=== PATIENT | female | born 1950 | race Caucasian/White ===

== ENCOUNTER 2016-05-30 12:49 | Emergency (ER) | payer MEDICARE, OTHER ==
[2016-05-30 13:08] VITALS: BP 127/69
--- NOTE | 2016-05-30 15:12 | UC ---
Respiratory Complaint HPI - HPI Summary HPI Summary: Cough x several days. Has been taking cough syrup with some relief. Also has a wound on her left hand that is 7 days old, that she has been using A& D and keeping it covered. Is concerned because it is still draining and starting to get red. - History of Current Complaint Chief Complaint: UCRespiratory Stated Complaint: DRY COUGH,LEFT HAND PAIN Time Seen by Provider: 05/30/16 15:02 Hx Obtained From: Patient Onset/Duration: Gradual Onset, Lasting Days, Still Present Timing: Constant Severity Initially: Moderate Severity Currently: Moderate Pain Intensity: 5 Pain Scale Used: 0-10 Numeric Character: Cough: Nonproductive Aggravating Factors: Nothing Alleviating Factors: Nothing Associated Signs And Symptoms: Positive: URI, Nasal Congestion. Negative: Fever , Chills - Risk Factors Pulmonary Embolism Risk Factors: Negative Cardiac Risk Factors: Negative Pseudomonas Risk Factors: Negative Tuberculosis Risk Factors: Negative - Allergies/Home Medications Allergies/Adverse Reactions: Allergies Allergy/AdvReac Type Severity Reaction Status Date / Time Bacitracin [From Neosporin] Allergy Rash Verified 05/30/16 13:05 Neomycin [From Neosporin] Allergy Rash Verified 05/30/16 13:05 Polymyxin B [From Neosporin] Allergy Rash Verified 05/30/16 13:05 Home Medications: Home Medications Aspirin EC Low Dose* [Ecotrin EC Low Dose*] 81 mg PO DAILY 05/30/16 [History Confirmed 05/30/16] FLUoxetine CAP* [PROzac CAP*] 20 mg PO DAILY 05/30/16 [History Confirmed ] LORazepam TAB(*) [Ativan TAB(*)] 0.25 mg PO BID 05/30/16 [History Confirmed ] Lisinopril TAB* [Prinivil TAB 10 MG*] 2.5 mg PO DAILY 05/30/16 [History Confirmed 05/30/16] Risperidone [Risperdal M-Tab-] 0.25 mg PO BID 05/30/16 [History Confirmed ] Simvastatin [Zocor 40 MG (NF)] 40 mg PO QPM 05/30/16 [History Confirmed 05/30/16 ] PMH/Surg Hx/FS Hx/Imm Hx Endocrine History Of: Reports: Dyslipidemia Cardiovascular History Of: Reports: Hypertension Psychological History Of: Reports: Depression Cancer History Of: Denies: Breast Cancer - Surgical History Surgical History: None - Family History Known Family History: Positive: Hypertension - Social History Occupation: Retired Alcohol Use: Occasionally Substance Use Type: None Smoking Status (MU): Never Smoked Tobacco Review of Systems Constitutional: Negative Skin: Other - lesion left hand Eyes: Negative ENT: Negative Respiratory: Cough Cardiovascular: Negative Gastrointestinal: Negative Genitourinary: Negative Motor: Negative Neurovascular: Negative Musculoskeletal: Negative Neurological: Negative Psychological: Negative All Other Systems Reviewed And Are Negative: Yes Physical Exam Triage Information Reviewed: Yes Appearance: Well-Appearing, Well-Nourished, Pain Distress Vital Signs: Initial Vital Signs Temp 98.3 F 05/30/16 13:02 Pulse 81 05/30/16 13:02 Resp 16 05/30/16 13:02 BP 127/69 05/30/16 13:02 Pulse Ox 100 05/30/16 13:02 Vital Signs Reviewed: Yes Eyes: Positive: Conjunctiva Clear ENT: Positive: Normal ENT inspection. Negative: Muffled/hoarse voice Neck: Positive: Supple Respiratory: Positive: Lungs clear, Normal breath sounds, No respiratory distress Cardiovascular: Positive: RRR, No Murmur, Pulses Normal, Brisk Capillary Refill Musculoskeletal: Positive: Strength Intact, ROM Intact Neurological: Positive: Alert, Muscle Tone Normal Psychological Exam: Normal Skin: Positive: Other - 3cm skin tear on dorsum of left hand; drainage cultured ; 2cm surrounding redness, no red streak; full ROM of hand; no bony tenderness UC Diagnostic Evaluation - Laboratory O2 Sat by Pulse Oximetry: 100 Respiratory Course/Dx - Course Course Of Treatment: will give antibiotic that will cover skin and cough. Discussed pt's sensitivity/allergy to antibiotic ointments, will not try anything new such as bactroban. Discussed wound care. Advised pt to use paper tape as some of the redness may be the bandaging she is using. Wound cultured. Pt to follow up with Dr. Tolentino if no improvement. - Differential Dx/Diagnosis Differential Diagnosis/HQI/PQRI: Bronchitis, Lower Resp Infection, Sinusitis, Other - hand wound Provider Diagnoses: left hand wound. acute cough Discharge - Discharge Plan Condition: Stable Disposition: HOME Prescriptions: Azithromycin TAB* [Zithromax TAB (Z-JES) 250 mg #6 tabs] 2 tab PO .TODAY, THEN 1 DAILY #1 jes guaiFENesin/CODIEN 100MG-10MG* [Robitussin AC 100Mg-10Mg*] 5 ml PO Q4H PRN #50 ml MDD 20ml PRN Reason: Cough Patient Education Materials: Abrasion (ED), Acute Cough (ED) Referrals: Yuri Tolentino MD [Primary Care Provider] - Additional Instructions: Dr. Goss recommends that you continue with the A & D ointment on your wound due to your allergies. Keep it covered except when you are in the shower. Use telfa (non-stick) bandages, and try paper tape that comes in a dispenser. If you see a red streak, if you have increased drainage, fever or any worsening symptoms, return to urgent care or see Dr. Tolentino.
--- NOTE | 2016-05-31 16:49 | UC ---
Progress - Progress Note Progress Note: The patient was called on the phone and told of the positive MRSA report. She was told of her treatment options. She did not want to wait on the sensitivity. She wanted to go with doxycycline as her treatment for the wound infection since she is allergic to sulfa medications. She was told that if she started the doxycycline, she would not need to take the Zithromax also. She stated that she will be in to get a copy of the microbiology report to take to her would care provider with whom she has an appointment tomorrow.
== END 2016-05-30 15:47 | disposition home or self-care (01) ==
LOC: UCCORT 12:49
DX: R05 Cough (principal); S61.412A Laceration without foreign body of left hand, initial encounter; B95.62 Methicillin resistant Staphylococcus aureus infection as the cause of diseases classified elsewhere; X58.XXXA Exposure to other specified factors, initial encounter; Y93.9 Activity, unspecified; Y92.9 Unspecified place or not applicable
CPT/HCPCS: 87070; 87077; 87186; 87205; 87640; 87641; 99212; G0463

== ENCOUNTER 2017-06-19 09:10 | Emergency (ER) | payer MEDICARE, OTHER ==
[2017-06-19 10:07] VITALS: BP 134/51
--- NOTE | 2017-06-19 10:09 | UC ---
Skin Complaint HPI - HPI Summary HPI Summary: 67 yo female had ring cut of LRF 4-5 days ago because it was too tight to remove and her finger was swelling there was a break in her skin now red as swollen were her ring was no f/c unsure of last TD but will check with here PCP - History of Current Complaint Chief Complaint: UCSkin Time Seen by Provider: 06/19/17 09:40 Stated Complaint: LEFT RING FINGER SKIN COMPLAINT Hx Obtained From: Patient Onset/Duration: Gradual Onset, Lasting Days Timing: Constant Onset Severity: Mild Current Severity: Mild Pain Intensity: 0 Pain Scale Used: 0-10 Numeric Location: Discrete Character: Redness, Raised Aggravating Factor(s): Touch Associated Signs & Symptoms: Positive: Tenderness. Negative: Fever, Chills Related History: Trauma - Allergy/Home Medications Allergies/Adverse Reactions: Allergies Allergy/AdvReac Type Severity Reaction Status Date / Time bacitracin Allergy Rash Verified 06/19/17 09:53 neomycin Allergy Rash Verified 06/19/17 09:53 [From Neosporin ([id number])] polymyxin B Allergy Rash Verified 06/19/17 09:53 [From Neosporin ([id number])] sulfamethoxazole Allergy Rash Verified 06/19/17 09:53 [From Bactrim] trimethoprim [From Bactrim] Allergy Rash Verified 06/19/17 09:53 Home Medications: Home Medications Cholecalciferol TAB* [Vitamin D TAB*] 1,000 unit PO DAILY 06/19/17 [History Confirmed 06/19/17] Review of Systems Constitutional: Negative Skin: Negative Eyes: Negative ENT: Negative Respiratory: Negative Cardiovascular: Negative Gastrointestinal: Negative Genitourinary: Negative Motor: Negative Neurovascular: Negative Musculoskeletal: Negative Neurological: Negative Psychological: Negative Is Patient Immunocompromised?: No All Other Systems Reviewed And Are Negative: Yes PMH/Surg Hx/FS Hx/Imm Hx Previously Healthy: Yes Endocrine History: Dyslipidemia Cardiovascular History: Hypertension - Surgical History Surgical History: None - Family History Known Family History: Positive: Hypertension, Diabetes - Social History Alcohol Use: Rare Substance Use Type: None Smoking Status (MU): Never Smoked Tobacco Physical Exam Triage Information Reviewed: Yes Appearance: Well-Appearing, No Pain Distress, Well-Nourished Vital Signs: Initial Vital Signs Temp 98.7 F 06/19/17 10:01 Pulse 79 06/19/17 10:01 Resp 18 06/19/17 10:01 BP 134/51 06/19/17 10:01 Pulse Ox 99 06/19/17 10:01 Vital Signs Reviewed: Yes Eyes: Positive: Conjunctiva Clear ENT: Positive: Hearing grossly normal. Negative: Nasal congestion, Nasal drainage, Muffled voice Neck: Positive: Supple, Nontender, No Lymphadenopathy Respiratory: Positive: Lungs clear, Normal breath sounds, No respiratory distress, No accessory muscle use Cardiovascular: Positive: RRR, No Murmur Musculoskeletal: Positive: ROM Intact, Other: - see image Neurological: Positive: Alert Psychological Exam: Normal Skin Exam: Other - see image Course/Dx - Diagnoses Provider Diagnoses: cellulitis left ring finger Discharge - Discharge Plan Condition: Stable Disposition: HOME Prescriptions: Cephalexin CAP* [Keflex CAP*] 500 mg PO QID #28 cap Patient Education Materials: Cellulitis (ED) Referrals: Yuri Tolentino MD [Primary Care Provider] - 5 Days (if not markedly improved ) Additional Instructions: recheck for new or worsening symptoms Images Hands: 1 - red and swollen
== END 2017-06-19 10:14 | disposition home or self-care (01) ==
LOC: UCCORT 09:10
DX: L03.012 Cellulitis of left finger (principal); Z88.1 Allergy status to other antibiotic agents; Z88.8 Allergy status to other drugs, medicaments and biological substances; I10 Essential (primary) hypertension
CPT/HCPCS: 99212; G0463

== ENCOUNTER 2019-01-28 10:39 | Emergency (ER) | payer MEDICARE, OTHER ==
--- OUTSIDE RECORDS SUMMARY | 2019-01-28 10:50 | XMS REPORT | Continuity of Care Document ---
:1950 External Reference #:[id number] Author Name Kristy Tolentino NP Address [address] [address] Care Team Providers Name Role Phone Kyung Jefferskristian - Gastroenterology Care Team Information Excellence Manager Problems Active Problems Provider Date Mixed hyperlipidemia Erasmo Araya MD Onset: 12/25/2003 Benign essential hypertension Erasmo Araya MD Onset: 12/25/2003 Psoriasis Kim Horan MD Onset: 03/25/2004 Cellulitis and abscess of foot excluding toe Kim Horan MD Onset: 2006 Toxic effect of venom Kim Horan MD Onset: 11/21/2006 Acute upper respiratory infection Kim Horan MD Onset: 06/21/2011 Acute bronchitis Kim Horan MD Onset: 02/29/2012 Impaired fasting glycaemia Kim Horan MD Onset: 02/29/2012 Essential hypertension Yuri Tolentino MD Onset: 01/13/2015 Social History Type Date Description Comments Sex Unknown Tobacco Use Start: Unknown Never Smoked Cigarettes ETOH Use Rarely consumes alcohol Recreational Drug Use Denies Drug Use Tobacco Use Start: Unknown Patient has never smoked Smoking Status Reviewed: 08/25/17 Patient has never smoked Allergies, Adverse Reactions, Alerts Active Allergies Reaction Severity Comments Date Sulfa Rash 08/22/2003 Neosporin Rash 08/22/2003 Bactrim rash 05/26/2012 Medications Active Medications SIG Qnty Indications Ordering Date Provider Benzonatate 1 by mouth three 30caps Randa 01/01/2019 100mg times a day CESAR Wagner Capsules Guaifenesin-Codeine 10ml every 4 hours 118ml Randa 01/01/2019 as needed CESAR Wagner 100-10mg/5ML Syrup Ibuprofen take one tablet by 120tabs M25.561 [facility], 12/21/2018 600mg mouth every 8 CESAR Wagner Tablets hours as needed Blood Pressure use to check bp as 1units [facility], 08/21/2018 Monitor Automatic directed CESAR Wagner With Large Cuff Kit Vitamin D 1 by mouth every [facility], 02/07/2018 (Ergocalciferol) day CESAR Wagner 2000Unit Capsules Atorvastatin Calcium 1 by mouth every 90tabs E78.2 [facility], 06/21/2017 day CESAR Wagner 40mg Tablets Fluoxetine HCL 1 tabs by mouth 90caps [facility], 09/24/2016 (PMDD) every morning CESAR Wagner 10mg Capsules Lisinopril 1 by mouth every 5tabs [facility], 12/11/2015 2.5mg day Kristy, FIREARMS INSPECTOR Tablets Onetouch Ultra Blue test twice daily 100units R73.01 Yuri Tolentino, 02/28 Strips Onetouch Delica ck glu qd AT 100units R73.01 Kim Horan, 02/29/2012 Lancets Alternating Times Misc Aspirin 1 by mouth every 90units Yuri Tolentino, 06/03/2010 81mg Chewtabs day History Medications Shingrix administer now and 2units Kristy Tolentino, 08/03/2018 - 50mcg/0.5ML second injection in FIREARMS INSPECTOR 08/03/2018 Suspension Rec 2-4 months Immunizations CPT Code Status Date Vaccine Lot # [id number] Given 03/28/2018 Pneumococcal 23 Immunization Adult Or [id number] Immunosuppressed Patient 49611 Given 02/25/2018 Influenza Vac, Quadrivalent, Split, 0.5mL Dosage, Im Use 89836 Given 08/25/2017 Tdap (Adacel) Ages 7 And Above Only [id number] 48927 Given 01/13/2016 Prevnar 13 Pneumococal Conjugate Vaccine [id number] U-Pneum Given 02/20/2015 Pneumococcal (Non Billable) Unspecified 16196 Given 03/04/2014 Zoster (Zostavax) [id number] 27706 Given 06/03/2010 Pneumococcal 23 Immunization Adult Or [id number] Immunosuppressed Patient 75284 Given 02/09/2010 Afluria Or Fluvirin Flu Vac Intramuscular [id number] 15349 Given 09/22/2005 Tdap (Adacel) Ages 7 And Above Only [id number] Refused 01/01/2019 Afluria Or Fluvirin Flu Vac Intramuscular 31753 Refused 02/03/2018 Fluzone Highdose Age 65 And Over Preservative & Antibiotic Free 75124 Refused 12/01/2016 Afluria Or Fluvirin Flu Vac Intramuscular Vital Signs Date Vital Result Comment 01/01/2019 3:21pm Body Temperature 98.0 F Weight 240.00 lb Heart Rate 81 /min BP Systolic 122 mmHg BP Diastolic 70 mmHg Respiratory Rate 16 /min Height 65 inches 5'5" O2 % BldC Oximetry 96 % BMI (Body Mass Index) 39.9 kg/m2 12/21/2018 3:30pm Body Temperature 97.7 F Weight 236.00 lb Heart Rate 85 /min BP Systolic 128 mmHg BP Diastolic 66 mmHg Respiratory Rate 17 /min Height 65 inches 5'5" O2 % BldC Oximetry 97 % BMI (Body Mass Index) 39.3 kg/m2 Results Description No Information Available Procedures Date Code Description Status 12/15/2018 13839 Destruction Benign Lesions Other Than Skin Tags Up To Completed 14 Lesions 08/21/2018 72921 Destruction Benign Lesions Other Than Skin Tags Up To Completed 14 Lesions 03/14/2018 [id number] Mammogram Completed 04/20/2017 [id number] Bone Mineral Density Test Completed 03/09/2017 [id number] Mammogram Completed 02/25/2016 [id number] Mammogram Completed 02/03/2015 [id number] Mammogram Completed 01/11/2014 [id number] Mammogram Completed 07/04/2013 [id number] Mammogram Completed 01/04/2013 [id number] Mammogram Completed 01/12/2012 [id number] Bone Mineral Density Test Completed 12/30/2011 [id number] Mammogram Completed Medical Devices Description No Information Available Encounters Type Date Location Provider Dx Diagnosis Office Visit 12/21/2018 Kristy Fallon NP E66.9 Obesity, unspecified 3:30p M25.561 Pain in RIGHT knee Z68.39 Body mass index (BMI) 39.0-39.9, adult Office Visit 08/03/2018 2:00p Kristy Fallon NP E66.9 Obesity, unspecified R73.01 Impaired fasting glucose F33.0 Major depressive disorder, recurrent, mild Z68.38 Body mass index (BMI) 38.0-38.9, adult Assessments Date Code Description Provider 01/01/2019 E66.9 Obesity, unspecified Kristy Tolentino, FIREARMS INSPECTOR 01/01/2019 J00 Acute nasopharyngitis [common cold] Georgesmadelyn Kristy, FIREARMS INSPECTOR 01/01/2019 Z68.39 Body mass index (BMI) 39.0-39.9, adult Kristy Tolentino, FIREARMS INSPECTOR 12/21/2018 E66.9 Obesity, unspecified Kristy Tolentino, FIREARMS INSPECTOR 12/21/2018 M25.561 Pain in RIGHT knee Kristy Tolentino, FIREARMS INSPECTOR 12/21/2018 Z68.39 Body mass index (BMI) 39.0-39.9, adult Kristy Tolentino, FIREARMS INSPECTOR 12/15/2018 E66.9 Obesity, unspecified Yuri Tolentino MD 12/15/2018 B07.0 Plantar Yuri Ornelas MD 12/15/2018 Z68.39 Body mass index (BMI) 39.0-39.9, adult Yuri Tolentino MD 08/21/2018 E66.9 Obesity, unspecified Kristy Tolentino, FIREARMS INSPECTOR 08/21/2018 B07.0 Plantar Kristy Ornelas, FIREARMS INSPECTOR 08/21/2018 Z68.38 Body mass index (BMI) 38.0-38.9, adult Kristy Tolentino, FIREARMS INSPECTOR 08/03/2018 E66.9 Obesity, unspecified Kristy Tolentino, FIREARMS INSPECTOR 08/03/2018 R73.01 Impaired fasting glucose Kristy Tolentino, CESAR 08/03/2018 F33.0 Major depressive disorder, recurrent, mild Kristy Tolentino , FIREARMS INSPECTOR 08/03/2018 Z68.38 Body mass index (BMI) 38.0-38.9, adult Kristy Tolentino NP Plan of Treatment Future Appointment(s):01/19/2019 10:30 am - Yuri Tolentino MD at [place]2018 - Kristy Tolentino NPE66.9 Obesity, [id number] Acute nasopharyngitis [ common cold]Z68.39 Body mass index (BMI) 39.0-39.9, adultAllNew Medication: Benzonatate 100 mg - 1 by mouth three times a dayGuaifenesin-Codeine 100-10 mg/ 5ML - 10ml every 4 hours as needed Functional Status Description No Information Available Mental Status Description No Information Available Referrals Description No Information Available
--- OUTSIDE RECORDS SUMMARY | 2019-01-28 10:50 | XMS REPORT | Continuity of Care Document ---
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 Problems Active Problems Provider Date Mixed hyperlipidemia [...] Medications SIG Qnty Indications Ordering Date Provider Blood Pressure use to check bp as 1units Randa, 08/21/2018 Monitor Automatic directed CESAR Wagner With Large Cuff Kit Vitamin D 1 by mouth every Randa, 02/07/2018 (Ergocalciferol) day Kristy PRINCIPAL DEVELOPER 2000Unit Capsules Atorvastatin Calcium 1 by mouth every 90tabs E78.2 Randa, 06/21/2017 day KristyCESAR 40mg Tablets Fluoxetine HCL 1 tabs by mouth 90caps Randa, 09/24/2016 (PMDD) every morning KristyCESAR 10mg Capsules Lisinopril 1 by mouth every 5tabs Randa, 12/11/2015 2.5mg day CESAR Wagner Tablets Onetouch Ultra Blue test twice daily 100units R73.01 Yuri Tolentino, 02/28 Strips Onetouch Delica ck glu qd AT 100units R73.01 Kim Horan, 02/29/2012 Lancets Alternating Times Misc Aspirin 1 by mouth every 90units Yuri Tolentino, 06/03/2010 81mg Chewtabs day History Medications Shingrix administer now and 2units Kristy Tolentino, 08/03/2018 - 50mcg/0.5ML second injection in PRINCIPAL DEVELOPER 08/03/2018 Suspension Rec 2-4 months Immunizations CPT Code Status Date Vaccine Lot # [id number] Given 03/28/2018 Pneumococcal 23 Immunization Adult Or [id number] Immunosuppressed Patient 44267 Given 02/25/2018 Influenza Vac, Quadrivalent, Split, 0.5mL Dosage, Im Use 05019 Given 08/25/2017 Tdap (Adacel) Ages 7 And Above Only [id number] 79568 Given 01/13/2016 Prevnar 13 Pneumococal Conjugate Vaccine [id number] U-Pneum Given 02/20/2015 Pneumococcal (Non Billable) Unspecified 52441 Given 03/04/2014 Zoster (Zostavax) [id number] 61733 Given 06/03/2010 Pneumococcal 23 Immunization Adult Or [id number] Immunosuppressed Patient 02948 Given 02/09/2010 Afluria Or Fluvirin Flu Vac Intramuscular [id number] 48508 Given 09/22/2005 Tdap (Adacel) Ages 7 And Above Only [id number] 62033 Refused 02/03/2018 Fluzone Highdose Age 65 And Over Preservative & Antibiotic Free 57951 Refused 12/01/2016 Afluria Or Fluvirin Flu Vac Intramuscular Vital Signs Date Vital Result Comment 12/15/2018 2:43pm Body Temperature 98.2 F Weight 237.00 lb Heart Rate 75 /min BP Systolic 130 mmHg BP Diastolic 72 mmHg Respiratory Rate 17 /min Height 65 inches 5'5" O2 % BldC Oximetry 96 % BMI (Body Mass Index) 39.4 kg/m2 08/21/2018 10:43am Body Temperature 96.8 F Weight 231.00 lb Heart Rate 91 /min BP Systolic 150 mmHg BP Diastolic 80 mmHg Respiratory Rate 15 /min Height 65 inches 5'5" O2 % BldC Oximetry 93 % BMI (Body Mass Index) 38.4 kg/m2 Results Description No Information Available Procedures Date Code Description Status 12/15/2018 88203 Destruction Benign Lesions Other Than Skin Tags Up To Completed 14 Lesions 08/21/2018 75977 Destruction Benign Lesions Other Than Skin Tags Up To Completed 14 Lesions 03/14/2018 [id number] Mammogram Completed 04/20/2017 [id number] Bone Mineral Density Test Completed 03/09/2017 [id number] Mammogram Completed 02/25/2016 [id number] Mammogram Completed 02/03/2015 [id number] Mammogram Completed 01/11/2014 [id number] Mammogram Completed 07/04/2013 [id number] Mammogram Completed 01/04/2013 [id number] Mammogram Completed 01/12/2012 [id number] Bone Mineral Density Test Completed 12/30/2011 [id number] Mammogram Completed Medical Devices Description No Information Available Encounters Type Date Location Provider Dx Diagnosis Office Visit 08/03/2018 Kristy Fallon NP E66.9 Obesity, unspecified 2:00p R73.01 Impaired fasting glucose F33.0 Major depressive disorder, recurrent, mild Z68.38 Body mass index (BMI) 38.0-38.9, adult Assessments Date Code Description Provider 12/15/2018 E66.9 Obesity, unspecified Yuri Tolentino MD 12/15/2018 B07.0 Plantar Yuri Ornelas MD 12/15/2018 Z68.39 Body mass index (BMI) 39.0-39.9, adult Yuir Tolentino MD 08/21/2018 E66.9 Obesity, unspecified Kristy Tolentino NP 08/21/2018 B07.0 Plantar Kristy Ornelas NP 08/21/2018 Z68.38 Body mass index (BMI) 38.0-38.9, adult Kristy Tolentino NP 08/03/2018 E66.9 Obesity, unspecified Kristy Tolentino NP 08/03/2018 R73.01 Impaired fasting glucose Kristy Tolentino NP 08/03/2018 F33.0 Major depressive disorder, recurrent, mild Kristy Tolentino , CESAR 08/03/2018 Z68.38 Body mass index (BMI) 38.0-38.9, adult Kristy Tolentino NP Plan of Treatment Future Appointment(s):12/21/2018 3:30 pm - Kristy Tolentino NP at [email or web address] 10:30 am - Yuri Tolentino MD at [place]12/15/2018 - Yuri Tolentino MDE66.9 Obesity, unspecifiedComments:RECOMMEND CONTINUED DIET AND EXERCISE. OFFERED CONSULT WITH OUR HVAC MAINTENANCE TECHNICIAN.B07.0 Plantar clementetFcynthia up:1 WEEK with WILD68.39 Body mass index (BMI) 39.0-39.9, adult Functional Status Description No Information Available Mental Status Description No Information Available Referrals Description No Information Available
--- OUTSIDE RECORDS SUMMARY | 2019-01-28 10:50 | XMS REPORT | Continuity of Care Document ---
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 Problems Active Problems Provider Date Mixed hyperlipidemia [...] Ibuprofen take one tablet by 120tabs M25.561 [facility], 12/21/2018 600mg mouth every 8 CESAR Wagner Tablets hours as needed Blood Pressure use to check bp as 1units [facility], 08/21/2018 Monitor Automatic directed CESAR Wagner With Large Cuff Kit Vitamin D 1 by mouth every [facility], 02/07/2018 (Ergocalciferol) day CESAR Wagner 2000Unit Capsules Atorvastatin Calcium 1 by mouth every 90tabs E78.2 [facility], 06/21/2017 day CESAR Wagner 40mg Tablets Fluoxetine HCL 1 tabs by mouth 90caps [facility], 09/24/2016 (PMDD) every morning CESAR Wagner 10mg Capsules Lisinopril 1 by mouth every 5tabs [facility], 12/11/2015 2.5mg day CESAR Wagner Tablets Onetouch Ultra Blue test twice daily 100units R73.01 Yuri Tolentino, 02/28 Strips Onetouch Delica ck glu qd AT 100units R73.01 Kim Horan, 02/29/2012 Lancets Alternating Times Misnick Aspirin 1 by mouth every 90units Yuri Tolentino, 06/03/2010 81mg Chewtabs day History Medications Shingrix administer now and 2units Kristy Tolentino, 08/03/2018 - 50mcg/0.5ML second injection in [employer] 08/03/2018 Suspension Rec 2-4 months Medications Administered in Office Medication SIG Qnty Indications Ordering Provider Date Inj Triamcinolone (Kenalog) Im Kristy Tolentino NP 01/08/2019 10 MG, Injection Immunizations CPT Code Status Date Vaccine Lot # [id number] Given 03/28/2018 Pneumococcal 23 Immunization Adult Or [id number] Immunosuppressed Patient 07395 Given 02/25/2018 Influenza Vac, Quadrivalent, Split, 0.5mL Dosage, Im Use 18656 Given 08/25/2017 Tdap (Adacel) Ages 7 And Above Only [id number] 88075 Given 01/13/2016 Prevnar 13 Pneumococal Conjugate Vaccine [id number] U-Pneum Given 02/20/2015 Pneumococcal (Non Billable) Unspecified 64923 Given 03/04/2014 Zoster (Zostavax) [id number] 90068 Given 06/03/2010 Pneumococcal 23 Immunization Adult Or [id number] Immunosuppressed Patient 33825 Given 02/09/2010 Afluria Or Fluvirin Flu Vac Intramuscular [id number] 58720 Given 09/22/2005 Tdap (Adacel) Ages 7 And Above Only [id number] Refused 01/01/2019 Afluria Or Fluvirin Flu Vac Intramuscular 93836 Refused 02/03/2018 Fluzone Highdose Age 65 And Over Preservative & Antibiotic Free 21177 Refused 12/01/2016 Afluria Or Fluvirin Flu Vac Intramuscular Vital Signs Date Vital Result Comment 01/08/2019 3:18pm Body Temperature 97.4 F Weight 238.00 lb Heart Rate 78 /min BP Systolic 140 mmHg BP Diastolic 90 mmHg O2 % BldC Oximetry 94 % 01/01/2019 3:21pm Body Temperature 98.0 F Weight 240.00 lb Heart Rate 81 /min BP Systolic 122 mmHg BP Diastolic 70 mmHg Respiratory Rate 16 /min Height 65 inches 5'5" O2 % BldC Oximetry 96 % BMI (Body Mass Index) 39.9 kg/m2 Results Description No Information Available Procedures Date Code Description Status 01/08/2019 20986 Inject/Drain Joint/Bursa Major W/Out Ultrasound Completed Guidance 12/15/2018 36941 Destruction Benign Lesions Other Than Skin Tags Up To Completed 14 Lesions 08/21/2018 90874 Destruction Benign Lesions Other Than Skin Tags Up To Completed 14 Lesions 03/14/2018 [id number] Mammogram Completed 04/20/2017 [id number] Bone Mineral Density Test Completed 03/09/2017 [id number] Mammogram Completed 02/25/2016 [id number] Mammogram Completed 02/03/2015 [id number] Mammogram Completed 01/11/2014 [id number] Mammogram Completed 07/04/2013 [id number] Mammogram Completed 01/04/2013 [id number] Mammogram Completed 01/12/2012 040540165 Bone Mineral Density Test Completed 12/30/2011 [id number] Mammogram Completed Medical Devices Description No Information Available Encounters Type Date Location Provider Dx Diagnosis Office Visit 01/01/2019 Kristy Fallon NP E66.9 Obesity, unspecified 3:15p J00 Acute nasopharyngitis [common cold] Z13.31 Encounter for screening for depression Z68.39 Body mass index (BMI) 39.0-39.9, adult Office Visit 12/21/2018 3:30p ErinnKristy Hernandez NP E66.9 Obesity, unspecified M25.561 Pain in RIGHT knee Z68.39 Body mass index (BMI) 39.0-39.9, adult Office Visit 08/03/2018 2:00p Kristy Fallon NP E66.9 Obesity, unspecified R73.01 Impaired fasting glucose F33.0 Major depressive disorder, recurrent, mild Z68.38 Body mass index (BMI) 38.0-38.9, adult Assessments Date Code Description Provider 01/08/2019 M17.11 Unilateral primary osteoarthritis, RIGHT knee Kristy Tolentino, CESAR 01/01/2019 E66.9 Obesity, unspecified Kristy Tolentino, CESAR 01/01/2019 J00 Acute nasopharyngitis [common cold] Kristy Tolentino, CESAR 01/01/2019 Z13.31 Encounter for screening for depression Kristy Tolentino, CESAR 01/01/2019 Z68.39 Body mass index (BMI) 39.0-39.9, adult Kristy Tolentino, CESAR 12/21/2018 E66.9 Obesity, unspecified Kristy Tolentino, CESAR 12/21/2018 M25.561 Pain in RIGHT knee Kristy Tolentino, CESAR 12/21/2018 Z68.39 Body mass index (BMI) 39.0-39.9, adult Kristy Tolentino, CESAR 12/15/2018 E66.9 Obesity, unspecified Yuri Tolentino MD 12/15/2018 B07.0 Plantar Yuri Ornelas MD 12/15/2018 Z68.39 Body mass index (BMI) 39.0-39.9, adult Yuri Tolentino MD 08/21/2018 E66.9 Obesity, unspecified Kristy Tolentino, CESAR 08/21/2018 B07.0 Plantar Kristy Ornelas, CESAR 08/21/2018 Z68.38 Body mass index (BMI) 38.0-38.9, adult Kristy Tolentino, CESAR 08/03/2018 E66.9 Obesity, unspecified Kristy Tolentino, [employer] 08/03/2018 R73.01 Impaired fasting glucose Kristy Tolentino NP 08/03/2018 F33.0 Major depressive disorder, recurrent, mild Kristy Tolentino NP 08/03/2018 Z68.38 Body mass index (BMI) 38.0-38.9, adult Kristy Tolentino NP Plan of Treatment Future Appointment(s):01/19/2019 10:30 am - Yuri Tolentino MD at [email or web address] - Kristy Tolentino NPM17.11 Unilateral primary osteoarthritis, RIGHT knee Functional Status Description No Information Available Mental Status Description No Information Available Referrals Description No Information Available
--- OUTSIDE RECORDS SUMMARY | 2019-01-28 10:50 | XMS REPORT | Continuity of Care Document ---
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 Problems Active Problems Provider Date Mixed hyperlipidemia [...] Medications SIG Qnty Indications Ordering Date Provider Ibuprofen take one tablet by 120tabs M25.561 [facility], 12/21/2018 600mg mouth every 8 CESAR Wagner Tablets hours as needed Blood Pressure use to check bp as 1units Randa 08/21/2018 Monitor Automatic directed CESAR Wagner With Large Cuff Kit Vitamin D 1 by mouth every [facility], 02/07/2018 (Ergocalciferol) day CESAR Wagner 2000Unit Capsules Atorvastatin Calcium 1 by mouth every 90tabs E78.2 [facility], 06/21/2017 day CESAR Wagner 40mg Tablets Fluoxetine HCL 1 tabs by mouth 90caps [facility], 09/24/2016 (PMDD) every morning CESAR Wagner 10mg Capsules Lisinopril 1 by mouth every 5tabs [facility], 12/11/2015 2.5mg day CESAR Wagner Tablets Onetouch Ultra Blue test twice daily 100units R73.01 Yuri Tolentino, 02/28 Strips Onetouch Delica ck glu qd AT 100units R73.01 Kim Horan, 02/29/2012 Lancets Alternating Times Misc Aspirin 1 by mouth every 90units Yuri Tolentino, 06/03/2010 81mg Chewtabs day History Medications Shingrix administer now and 2units Kristy Tolentino, 08/03/2018 - 50mcg/0.5ML second injection in 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 08/03/2018 Suspension Rec 2-4 months Immunizations CPT Code Status Date Vaccine Lot # [id number] Given 03/28/2018 Pneumococcal 23 Immunization Adult Or [id number] Immunosuppressed Patient 33339 Given 02/25/2018 Influenza Vac, Quadrivalent, Split, 0.5mL Dosage, Im Use 85949 Given 08/25/2017 Tdap (Adacel) Ages 7 And Above Only [id number] 44479 Given 01/13/2016 Prevnar 13 Pneumococal Conjugate Vaccine [id number] U-Pneum Given 02/20/2015 Pneumococcal (Non Billable) Unspecified 77664 Given 03/04/2014 Zoster (Zostavax) [id number] 56422 Given 06/03/2010 Pneumococcal 23 Immunization Adult Or [id number] Immunosuppressed Patient 40002 Given 02/09/2010 Afluria Or Fluvirin Flu Vac Intramuscular [id number] 01327 Given 09/22/2005 Tdap (Adacel) Ages 7 And Above Only [id number] 94698 Refused 02/03/2018 Fluzone Highdose Age 65 And Over Preservative & Antibiotic Free 02311 Refused 12/01/2016 Afluria Or Fluvirin Flu Vac Intramuscular Vital Signs Date Vital Result Comment 12/21/2018 3:30pm Body Temperature 97.7 F Weight 236.00 lb Heart Rate 85 /min BP Systolic 128 mmHg BP Diastolic 66 mmHg Respiratory Rate 17 /min Height 65 inches 5'5" O2 % BldC Oximetry 97 % BMI (Body Mass Index) 39.3 kg/m2 12/15/2018 2:43pm Body Temperature 98.2 F Weight 237.00 lb Heart Rate 75 /min BP Systolic 130 mmHg BP Diastolic 72 mmHg Respiratory Rate 17 /min Height 65 inches 5'5" O2 % BldC Oximetry 96 % BMI (Body Mass Index) 39.4 kg/m2 Results Description No Information Available Procedures Date Code Description Status 12/15/2018 44901 Destruction Benign Lesions Other Than Skin Tags Up To Completed 14 Lesions 08/21/2018 54503 Destruction Benign Lesions Other Than Skin Tags Up To Completed 14 Lesions 03/14/2018 [id number] Mammogram Completed 04/20/2017 231167740 Bone Mineral Density Test Completed 03/09/2017 [id number] Mammogram Completed 02/25/2016 [id number] Mammogram Completed 02/03/2015 82267354 Mammogram Completed 01/11/2014 [id number] Mammogram Completed 07/04/2013 [id number] Mammogram Completed 01/04/2013 92463270 Mammogram Completed 01/12/2012 250703879 Bone Mineral Density Test Completed 12/30/2011 [id number] Mammogram Completed Medical Devices Description No Information Available Encounters Type Date Location Provider Dx Diagnosis Office Visit 08/03/2018 Kristy Fallon NP E66.9 Obesity, unspecified 2:00p R73.01 Impaired fasting glucose F33.0 Major depressive disorder, recurrent, mild Z68.38 Body mass index (BMI) 38.0-38.9, adult Assessments Date Code Description Provider 12/21/2018 E66.9 Obesity, unspecified Kristy Tolentino NP 12/21/2018 M25.561 Pain in RIGHT knee Kristy Tolentino NP 12/21/2018 Z68.39 Body mass index (BMI) 39.0-39.9, adult Kristy Tolentino NP 12/15/2018 E66.9 Obesity, unspecified Yuri Tolentino MD 12/15/2018 B07.0 Plantar Yuri Ornelas MD 12/15/2018 Z68.39 Body mass index (BMI) 39.0-39.9, adult Yuri Tolentino MD 08/21/2018 E66.9 Obesity, unspecified Kristy Tolentino, CESAR 08/21/2018 B07.0 Plantar Kristy Ornelas, [employer]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 08/21/2018 Z68.38 Body mass index (BMI) 38.0-38.9, adult Kristy Tolentino, CESAR 08/03/2018 E66.9 Obesity, unspecified Kristy Tolentino, [employer]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 08/03/2018 R73.01 Impaired fasting glucose Kristy Tolentino, CESAR 08/03/2018 F33.0 Major depressive disorder, recurrent, mild Kristy Tolentino , CESAR 08/03/2018 Z68.38 Body mass index (BMI) 38.0-38.9, adult Kristy Tolentino, CESAR Plan of Treatment Future Appointment(s):01/19/2019 10:30 am - Yuri Tolentino MD at [email or web address] - Kristy Tolentino, NPE66.9 Obesity, kdhikrjjwobG27.561 Pain in RIGHT kneeNew Medication:Ibuprofen 600 mg - take one tablet by mouth every 8 hours as neededNew Xrays:Knee, Complete,, RT, Ordered: 12/21/18Z68.39 Body mass index ( BMI) 39.0-39.9, adult Functional Status Description No Information Available Mental Status Description No Information Available Referrals Description No Information Available
[2019-01-28 10:55] VITALS: BP 142/64
--- NOTE | 2019-01-28 11:03 | UC ---
Complaint Female HPI - HPI Summary HPI Summary: Pt presents with c/o sudden onset of urinary symptoms of pressure, urgency and frequency that began this morning. Pt denies dysuria - History Of Current Complaint Stated Complaint: URINARY Time Seen by Provider: 01/28/19 10:49 Hx Obtained From: Patient ?: No Onset/Duration: Sudden Onset, Lasting Hours, Still Present Timing: Constant - constant pelvic pressure Severity Initially: Mild Severity Currently: Mild Pain Intensity: 0 Character: Not Applicable Aggravating Factor(s): Urination Associated Signs And Symptoms: Positive: Negative - Risk Factors Ectopic Risk Factor: Negative Ovarian Torsion Risk Factor: Negative - Allergies/Home Medications Allergies/Adverse Reactions: Allergies Allergy/AdvReac Type Severity Reaction Status Date / Time bacitracin Allergy Rash Verified 01/28/19 10:51 neomycin Allergy Rash Verified 01/28/19 10:51 [From Neosporin ([id number])] polymyxin B Allergy Rash Verified 01/28/19 10:51 [From Neosporin ([id number]-aulyp)] sulfamethoxazole Allergy Rash Verified 01/28/19 10:51 [From Bactrim] trimethoprim [From Bactrim] Allergy Rash Verified 01/28/19 10:51 Home Medications: Home Medications Atorvastatin* [Lipitor 20 MG*] 20 mg PO DAILY 01/28/19 [History Confirmed ] PMH/Surg Hx/FS Hx/Imm Hx Previously Healthy: Yes Endocrine History: Dyslipidemia Cardiovascular History: Cardiac Disease - Surgical History Surgical History: Yes Surgery Procedure, Year, and Place: D&C - Family History Known Family History: Positive: Hypertension, Diabetes - Social History Occupation: Retired Lives: With Family Alcohol Use: Rare Substance Use Type: None Smoking Status (MU): Never Smoked Tobacco Have You Smoked in the Last Year: No Review of Systems All Other Systems Reviewed And Are Negative: Yes Constitutional: Positive: Negative Skin: Positive: Negative Eyes: Positive: Negative ENT: Positive: Negative Respiratory: Positive: Negative Cardiovascular: Positive: Negative Gastrointestinal: Positive: Diarrhea - this morning but has since resolved Genitourinary: Positive: Frequency, Urgency Motor: Positive: Negative Neurovascular: Positive: Negative Musculoskeletal: Positive: Negative Neurological: Positive: Negative Psychological: Positive: Negative Is Patient Immunocompromised?: No Physical Exam Triage Information Reviewed: Yes Appearance: Well-Appearing Vital Signs: Initial Vital Signs Temp 98.6 F 01/28/19 10:53 Pulse 85 01/28/19 10:53 Resp 20 01/28/19 10:53 BP 142/64 01/28/19 10:53 Pulse Ox 96 01/28/19 10:53 Vital Signs Reviewed: Yes Eye Exam: Normal ENT Exam: Normal Dental Exam: Normal Neck exam: Normal Respiratory Exam: Normal Cardiovascular Exam: Normal Abdominal Exam: Normal Abdomen Description: Positive: Nontender Musculoskeletal Exam: Normal Neurological Exam: Normal Psychological Exam: Normal Skin Exam: Normal Complaint Female Dx - Differential Dx/Diagnosis Differential Diagnosis/HQI/PQRI: Urinary Tract Infection Provider Diagnosis: UTI (urinary tract infection) Discharge ED - Sign-Out/Discharge Documenting (check all that apply): Patient Departure All imaging exams completed and their final reports reviewed: No Studies - Discharge Plan Condition: Stable Disposition: HOME Prescriptions: Cephalexin CAP* [Keflex 500 CAP*] 500 mg PO Q12H #21 cap Phenazopyridine TAB* [Pyridium 100 mg TAB*] 100 mg PO Q8H #3 tab Patient Education Materials: Urinary Tract Infection in Women (ED) Referrals: Yuri Tolentino MD [Primary Care Provider] - If Needed - Billing Disposition and Condition Condition: STABLE Disposition: Home
== END 2019-01-28 11:09 | disposition home or self-care (01) ==
LOC: UCCORT 10:39
DX: N39.0 Urinary tract infection, site not specified (principal); I51.9 Heart disease, unspecified; E78.5 Hyperlipidemia, unspecified; Z79.899 Other long term (current) drug therapy; Z88.1 Allergy status to other antibiotic agents; Z88.2 Allergy status to sulfonamides
CPT/HCPCS: 81003; 87077; 87086; 87186; 99212; G0463

== ENCOUNTER 2019-02-18 13:28 | Emergency (ER) | payer MEDICARE, OTHER ==
[2019-02-18 14:25] VITALS: BP 155/71
--- NOTE | 2019-02-18 14:52 | UC ---
Complaint Female HPI - HPI Summary HPI Summary: 69 yo female with dysuria/urgency and frequency since this AM hx of microscopic hematuria for which she sees a urologist Had a UTI 3 weeks ago - History Of Current Complaint Chief Complaint: UCGU Stated Complaint: URINARY COMPLAINT Time Seen by Provider: 02/18/19 14:41 Onset/Duration: Gradual Onset Timing: Intermittent, Lasting Seconds Severity Initially: Mild Severity Currently: None Pain Intensity: 0 Pain Scale Used: 0-10 Numeric Character: Burning Aggravating Factor(s): Urination - terminal dysuria Alleviating Factor(s): Nothing Associated Signs And Symptoms: Negative: Fever, Back Pain, Vaginal Bleeding/ Discharge, Vaginal Discharge, Nausea, Vomiting(# Of Episodes =), Genital Swelling, Genital Blisters, Retained Foregin Body (Specify) - Allergies/Home Medications Allergies/Adverse Reactions: Allergies Allergy/AdvReac Type Severity Reaction Status Date / Time bacitracin Allergy Rash Verified 02/18/19 14:25 neomycin Allergy Rash Verified 02/18/19 14:25 [From Neosporin ([id number])] polymyxin B Allergy Rash Verified 02/18/19 14:25 [From Neosporin ([id number]-wfumv)] sulfamethoxazole Allergy Rash Verified 02/18/19 14:25 [From Bactrim] trimethoprim [From Bactrim] Allergy Rash Verified 02/18/19 14:25 PMH/Surg Hx/FS Hx/Imm Hx Previously Healthy: Yes Cardiovascular History: Hypertension - Surgical History Surgical History: Yes Surgery Procedure, Year, and Place: D&C - Family History Known Family History: Positive: Hypertension, Diabetes - Social History Alcohol Use: Rare Substance Use Type: None Smoking Status (MU): Never Smoked Tobacco Have You Smoked in the Last Year: No Review of Systems All Other Systems Reviewed And Are Negative: Yes Constitutional: Positive: Negative Skin: Positive: Negative Eyes: Positive: Negative ENT: Positive: Negative Respiratory: Positive: Negative Cardiovascular: Positive: Negative Gastrointestinal: Positive: Negative Genitourinary: Positive: Dysuria, Frequency, Urgency Motor: Positive: Negative Neurovascular: Positive: Negative Musculoskeletal: Positive: Negative Neurological: Positive: Negative Psychological: Positive: Negative Physical Exam Triage Information Reviewed: Yes Appearance: Well-Appearing, No Pain Distress, Well-Nourished Vital Signs: Initial Vital Signs Temp 99.8 F 11/10/19 14:21 Pulse 76 02/18/19 14:21 Resp 18 02/18/19 14:21 BP 155/71 02/18/19 14:21 Pulse Ox 99 02/18/19 14:21 Vital Signs Reviewed: Yes Eyes: Positive: Conjunctiva Clear ENT: Positive: Hearing grossly normal. Negative: Nasal congestion, Nasal drainage, Trismus, Muffled voice, Dental tenderness Neck: Positive: Nontender, No Lymphadenopathy Respiratory: Positive: Lungs clear, Normal breath sounds, No respiratory distress, No accessory muscle use Cardiovascular: Positive: RRR, No Murmur Abdomen Description: Positive: Nontender, No Organomegaly, Soft Bowel Sounds: Positive: Present Musculoskeletal: Positive: ROM Intact, No Edema Neurological: Positive: Alert Psychological Exam: Normal Skin Exam: Normal Diagnostics - Laboratory Lab Results: UA +++ leuks,++ RBCs Complaint Female Dx - Differential Dx/Diagnosis Provider Diagnosis: Acute cystitis Discharge ED - Sign-Out/Discharge Documenting (check all that apply): Patient Departure All imaging exams completed and their final reports reviewed: No Studies - Discharge Plan Condition: Stable Disposition: HOME Prescriptions: Nitrofurantoin Monohyd/M-Cryst [Macrobid 100 mg Capsule] 100 mg PO BID #14 cap Patient Education Materials: Urinary Tract Infection in Women (ED) Referrals: Yuri Tolentino MD [Primary Care Provider] - Additional Instructions: I suggest you call your urologist and make a follow up appt A urine culture is pending - Billing Disposition and Condition Condition: STABLE Disposition: Home
== END 2019-02-18 15:09 | disposition home or self-care (01) ==
LOC: UCCORT 13:28
DX: N30.00 Acute cystitis without hematuria (principal); I10 Essential (primary) hypertension; Z88.1 Allergy status to other antibiotic agents; Z88.2 Allergy status to sulfonamides
CPT/HCPCS: 81003; 87077; 87086; 87186; 99212; G0463

== ENCOUNTER 2019-05-24 14:36 | Emergency (ER) | payer MEDICARE, OTHER ==
--- OUTSIDE RECORDS SUMMARY | 2019-05-24 14:43 | XMS REPORT | Continuity of Care Document ---
:1950 External Reference #:[id number] Author Name Yuri Tolentino MD Address [address] [address] Care Team Providers Name Role Phone Hank Jeffers - Gastroenterology Care Team Information Mixed Signal Design Engineer Fox Diaz M.D. - Obstetrics & Care Team Information Mixed Signal Design Engineer [phone] Gynecology Problems Active Problems Provider Date Mixed hyperlipidemia [...] Patient has never smoked Smoking Status Reviewed: 01/19/19 Patient has never smoked Allergies, Adverse Reactions, Alerts Active Allergies Reaction Severity Comments Date Sulfa Rash 08/22/2003 Neosporin Rash 08/22/2003 Bactrim rash 05/26/2012 Medications Active Medications SIG Qnty Indications Ordering Date Provider Lisinopril 1 by mouth every 90tabs Yuri Tolentino, 03/02/2019 5mg Tablets day Nitrofurantoin 1 by mouth twice a 14caps Randa, 02/19/2019 Macrocrystal day for 7 days CESAR Wagner 100mg Capsules Vitamin D3 Ultra take 1 capsule by 12tabs Randa, 02/19/2019 Potency mouth every week CESAR Wagner 1.25mg (87395 Ut) Tablets Guaifenesin-Codeine 10ml every 4 hours 118ml Randa, 01/01/2019 as needed CESAR Wagner 100-10mg/5ML Syrup Ibuprofen take one tablet by 120tabs M25.561 Randa, 12/21/2018 600mg Tablets mouth every 8 CESAR Wagner hours as needed Blood Pressure use to check bp as 1units Randa, 08/21/2018 Monitor Automatic directed CESAR Wagner With Large Cuff Kit Atorvastatin Calcium 1 by mouth every 90tabs E78.2 Yuri Tolentino, 2017 day 40mg Tablets Fluoxetine HCL (PMDD) 1 tabs by mouth 90caps Randa, 09/24/2016 every morning CESAR Wagner 10mg Capsules Onetouch Ultra Blue test twice daily 100units R73.01 Yuri Tolentino, 02/28 Strips Onetouch Delica ck glu qd AT 100units R73.01 Kim Horan, 02/29/2012 Lancets Alternating Times MD [place] Aspirin 1 by mouth every 90units Yuri Tolentino, 06/03/2010 81mg Chewtabs day History Medications Myrbetriq 1 by mouth every 90tabs Yuri Tolentino MD 03/02/2019 - 25mg Tablets ER day 05/07/2019 24HR Benzonatate 1 by mouth three 30caps Kristy Tolentino, 01/01/2019 - 100mg times a day FIELD TECHNICAL SPECIALIST 01/19/2019 Capsules Medications Administered in Office Medication SIG Qnty Indications Ordering Provider Date Inj Triamcinolone (Kenalog) Im Kristy Tolentino NP 01/08/2019 10 MG, Injection Immunizations CPT Code Status Date Vaccine Lot # [id number] Given 02/02/2019 Influenza Vac, Quadrivalent, Split, 0.5mL Dosage, Im Use 78410 Given 01/29/2019 Shingrix (Shingles) Zoster Vaccine HZV, Recombinant, Subunit, Adj 94591 Given 03/28/2018 Pneumococcal 23 Immunization Adult Or [id number] Immunosuppressed Patient 49221 Given 02/25/2018 Influenza Vac, Quadrivalent, Split, 0.5mL Dosage, Im Use 39668 Given 08/25/2017 Tdap (Adacel) Ages 7 And Above Only [id number] 50625 Given 01/13/2016 Prevnar 13 Pneumococal Conjugate Vaccine [id number] U-Pneum Given 02/20/2015 Pneumococcal (Non Billable) Unspecified 46102 Given 03/04/2014 Zoster (Zostavax) [id number] 57873 Given 06/03/2010 Pneumococcal 23 Immunization Adult Or [id number] Immunosuppressed Patient 04428 Given 02/09/2010 Afluria Or Fluvirin Flu Vac Intramuscular [id number] 15091 Given 09/22/2005 Tdap (Adacel) Ages 7 And Above Only [id number] Refused 01/01/2019 Afluria Or Fluvirin Flu Vac Intramuscular [id number] Refused 02/03/2018 Fluzone Highdose Age 65 And Over Preservative & Antibiotic Free [id number] Refused 12/01/2016 Afluria Or Fluvirin Flu Vac Intramuscular Vital Signs Date Vital Result Comment 05/07/2019 4:18pm Body Temperature 98.2 F Weight 234.00 lb Heart Rate 83 /min BP Systolic 140 mmHg BP Diastolic 80 mmHg Respiratory Rate 14 /min Height 65 inches 5'5" O2 % BldC Oximetry 95 % BMI (Body Mass Index) 38.9 kg/m2 03/09/2019 9:04am Body Temperature 96.6 F Weight 239.00 lb Heart Rate 71 /min BP Systolic 122 mmHg BP Diastolic 60 mmHg Respiratory Rate 16 /min Height 65 inches 5'5" O2 % BldC Oximetry 95 % BMI (Body Mass Index) 39.8 kg/m2 Results Test Acquired Date Facility Test Result H/L Range Note Urine Culture And 02/18/2019 [facility] Urine SEE RESULT 1 , 2 Sensitivities Culture BELOW Poc Urinalysis 02/18/2019 [facility] Poc Negative Negative Glucose, Urine Poc Bilirubin, Urine Negative Negative Poc Ketone, Urine Negative Negative Poc Specific Basin, Urine 1.020 Normal 1.010-1.030 Poc Blood, Urine 2+ Abnormal Negative Poc pH, Urine 7.0 Normal 5-9 Poc Protein, Urine Negative Negative Poc Urobilinogen, Urine 1.0 Negative Poc Nitrite, Urine Negative Negative Poc Leukocytes, Urine 3+ Abnormal Negative Poc Color, Urine Yellow Poc Clarity, Urine Clear 3 Rout Urine W/ Micro -RL 02/15/2019 [facility] Color YELLOW Appearance CLEAR Spec Grav Urine 1.018 (1.003-1.030) PH Urine 5.0 (5.0-7.5) Leuk Esterase NEGATIVE (Neg) Nitrite Urine NEGATIVE (Neg) Protein Urine NEGATIVE (Neg) Glucose Urine NEGATIVE (Neg) Ketone Urine NEGATIVE (Neg) Urobilinogen 0.2 mg/dL (0-1.0) Bilirubin Urine NEGATIVE (Neg) Blood/HGB Urine 1+ Abnormal (Neg) Epithelial Cells NEGATIVE [HPF] (Neg) Hyaline Casts 0.3 [LPF] (0-5) Bacteria 3+ [HPF] Abnormal (Neg) Urine WBC 2.1 [HPF] (0-8) Urine RBC 0.5 [HPF] (0-3) 4 Laboratory test 02/15/2019 [facility]ology Fluid SEE NOTE 5 finding Specimen Laboratory test 02/15/2019 [facility] Urine Culture Microbiology res Abnormal 6 finding <SEE NOTE> Vitamin D 25 Hydroxy 25 ng/mL Low 30-100 7 Poc Urinalysis 01/28/2019 [facility] Poc Glucose, Urine Negative Negative Poc Bilirubin, Urine 1+ Abnormal Negative Poc Ketone, Urine Negative Negative Poc Specific Basin, Urine 1.025 Normal 1.010-1.030 Poc Blood, Urine 3+ Abnormal Negative Poc pH, Urine 5.0 Normal 5-9 Poc Protein, Urine 2+ Abnormal Negative Poc Urobilinogen, Urine 0.2 Negative Poc Nitrite, Urine Positive Abnormal Negative Poc Leukocytes, Urine 1+ Abnormal Negative Poc Color, Urine Eden Poc Clarity, Urine Cloudy 8 Urine Culture And 01/28/2019 [facility] Urine Culture SEE RESULT 9, 10 Sensitivities BELOW [facility] Microbiology Abnormal 11 finding res <SEE NOTE> Hemoglobin A1c [facility] Hem[facility] A1c 6.6 % High 4.1 -5. 9 Estimated Average Glucose Calc 143 mg/dL High 71-140 Lipid 01/19/2019 [facility] Cholesterol 150 mg/dL 50-199 Triglycerides 64 mg/dL 30-200 HDL 46 mg/dL 35-85 12 Chol/ HDL Ratio 3.3 ratio Low 3.7-5.6 VLDL 13 mg/dL 2-29 LDL (Calc) 91 mg/dL 20-99 13 CBC with Auto Diff-fcmg 01/19/2019 [facility] WBC 6.4 K/uL 4.1-11.0 RBC 4.55 M/uL 4.00-5.40 Hemoglobin 14.1 gm/dL 12.0-16.0 Hematocrit 41.7 % 36.0-47.0 MCV 91.6 fL 80.0-97.0 MCH 31.0 pg 27.0-32.0 MCHC 33.8 g/dL 32.0-36.0 RDW 13.9 % 11.5-14.5 PLT Count 281 K/ul 140-400 MPV 7.9 FL 7.1-10.7 Neutrophil 66.6 % 35.0-75.0 Lymphocyte 25.1 % 16.0-52.0 Monocyte 6.6 % 2.0-10.0 Eosinophil 1.1 % 0.0-5.0 Basophil 0.6 % 0.0-4.0 Abs Neutrophils 4.3 K/uL 2.1-8.0 Abs Lymphocytes 1.6 K/uL 0.8-5.5 Abs Monocytes 0.4 K/uL 0.1-1.0 Abs Eosinophils 0.1 K/uL 0.0-0.5 Abs Basophils 0.0 K/uL 0.0-0.3 Comprehensive Met Panel-[facility]CMG 01/19/2019 [facility] Sodium 139 mmol/L 135- 146 14 Potassium 4.0 mmol/L 3.5-5.2 Chloride# 106 mmol/L 97-110 15 Carbon Dioxide 25 mmol/L 24-34 Calcium 8.8 mg/dL 8.5-10.5 16 Glucose 121 mg/dL High 70-105 BUN 26 mg/dL 6-26 Creatinine 0.8 mg/dL 0.5-1.4 Total Protein 6.5 g/dL 6.0-8.0 Albumin 4.1 g/dL 3.6-4.9 Globulin 2.4 g/dL 2.0-3.5 A/G Ratio 1.7 Ratio 1.0-2.2 Total Bilirubin 0.6 mg/dL 0.1-1.3 Alkaline Phosphatase 81 U/L 24-140 Alt 17 U/L 3-42 Ast 15 U/L 8-42 Anion Gap 8 mmol/L 5-15 17 Female Egfr 81 >60 18 Male Egfr 94 >60 19 1 [id number] 2 SEE RESULT BELOW Name: CORI HORAN : [address]: Yuri Knight MD Acct: [id number] Unit: [id number] AGE: 69 Location: [facility] Re02/18/19 SEX: F Status: DEP ER SPEC: [id number] [place]: 02/18/19-[address]: Yuri Knight MD REQ: [id number] RECD: 02/19/19 STATUS:EDWARDO CHURCH DR: [facility] Yuri Sparrow MD _ SOURCE: URINE SPDESC: ORDERED: Urine Culture COMMENTS: [id number] QUERIES: Urine Source: Random Procedure Result Reported Site Urine Culture Final 02/21/19- 0833 ML Organism 1 ESCHERICHIA COLI [place] Count 75-100,000 (Many) CFU/ML 1. ESCHERICHIA COLI M.I.C. RX --------- ------ Ampicillin 4 S Cefazolin <=4 S Cefepime <=1 S Ceftriaxone <=1 S Ciprofloxacin <=0.25 S Gentamicin <=1 S Levofloxacin <=0.12 S Meropenem <=0.25 S Nitrofurantoin 32 S Tetracycline <=1 S Pipercillin/Tazobactam <=4 S Trimethoprim/Sulfamethoxazole <=20 S Amoxicillin/Clavulanic Acid <=2 S Aztreonam <=1 S CONTINUED ON NEXT PAGE DEPARTMENT OF PATHOLOGY, [address] [place] [address] Harlan Spence M.D. Director [facility] # [id number] Specimen: [id number] Collected: 02/18/19 Received: 02/19/19 (Continued) Procedure Result Reported Site Urine Culture Final (continued) Contact the Microbiology Department for any additional antibiotic reporting. * ML - Main Lab . END OF REPORT DEPARTMENT OF PATHOLOGY, [address] [place] [address] Harlan Spence M.D. Director [facility] # [id number] 3 Hand Polisher: [id number] Unless otherwise specified, testing performed by [facility] [employer] [address] [address] LABORATORY [facility]. [address] [place] [address] MISCELLANEOUS CYTOLOGY REPORT Source of Specimen(s): A: LBP Urine, Voided Clinical Diagnosis and History: R82.998 Gross Description LBP Urine, Voided: 5 cc clear yellow fluid. Final Diagnosis Specimen Adequacy Satisfactory Final Diagnosis NEGATIVE FOR HIGH-GRADE UROTHELIAL CARCINOMA. Squamous cells, urothelial cells and neutrophils. Few cells with viral changes suggestive of polyoma virus. Processed and screen As applicable, positive and negative controls for all immunohistochemical and/or special stains were reviewed and considered appropriate. Reported: 02/16/2019 16:10 Electronically Signed Out By Paradise Smith MD [facility] Superintendent: Tamy DONNELLY([facility]) [facility] ICD Code: R82.998 CPT Code: A: 63067Z Unless otherwise specified, testing performed by [facility] [address] [address] 6 Microbiology results SOURCE Clean Catch Midstream COLONY COUNT 75,000 PRELIMINARY RESULT Gram Negative Dylon. ID & Sensitivity to Follow. 02/16/2019 4:34 PM FINAL RESULT Escherichia coli (Isolate 1) Sensitivity Analysis Isolate 1 --------- AMIKACIN <=16 S AMOXICILLIN/CLAVULANATE <=8/4 S AMPICILLIN <=8 S AMPICILLIN/SULBACTAM <=8/4 S CEFAZOLIN <=2 S CEFEPIME <=8 S CEFOTAXIME <=2 S CEFTRIAXONE <=1 S CEFUROXIME <=4 S CIPROFLOXACIN <=1 S ERTAPENEM <=0.5 S GENTAMYCIN <=2 S IMIPENEM <=1 S LEVOFLOXACIN <=2 S NITROFURANTOIN <=32 S PIPERACILLIN/TAZOBACTAM <=16 S TETRACYCLINE <=4 S TOBRAMYCIN <=4 S TRIMETHOPRIM/SULFAMETHOXAZ <=2/38 S S=Sensitive;I=Indeterminate;R=Resistant 7 Clinical Guidelines for recommended serum 25(OH)Vitamin D Deficient at less than 20 ng/mL Insufficient at 20 to <30 ng/mL Sufficient at 30-100 ng/mL Toxicity at greater than 100 ng/mL 8 Hand Polisher: [id number] 10 SEE RESULT BELOW Name: CORI HORAN : [address]: Cornel Christianson MD Acct: [id number] Unit: [id number] AGE: 69 Location: [facility] Re01/28/19 SEX: F Status: DEP ER SPEC: [id number] [place]: 01/28/[address] [facility] [address]: Cheri Rodriguez NP REQ: [id number] RECD: 01/28/19 STATUS: EDWARDO CHURCH DR: Yuri Christianson MD _ SOURCE: URINE SPDESC: ORDERED: Urine Culture COMMENTS: [id number] QUERIES: Urine Source: Random Procedure Result Reported Site Urine Culture Final 01/30/19- 0826 ML Organism 1 ESCHERICHIA COLI [place] Count >100,000 (Many) CFU/ML 1. ESCHERICHIA COLI M.I.C. RX --------- ------ Ampicillin <=2 S Cefazolin <=4 S Cefepime <=1 S Ceftriaxone <=1 S Ciprofloxacin <=0.25 S Gentamicin <=1 S Levofloxacin <=0.12 S Meropenem <=0.25 S Nitrofurantoin <=16 S Tetracycline <=1 S Pipercillin/Tazobactam <=4 S Trimethoprim/Sulfamethoxazole <=20 S Amoxicillin/Clavulanic Acid <=2 S Aztreonam <=1 S Contact the Microbiology Department for any additional antibiotic reporting. * ML - Main Lab . END OF REPORT DEPARTMENT OF PATHOLOGY, [address] [place] [address] Harlan Spence M.D. Director [facility] # [id number] 11 Microbiology results SOURCE Clean Catch Midstream COLONY COUNT 25,000 CFU/ML PRELIMINARY RESULT Gram Negative Dylon. ID & Sensitivity to Follow. 01/20/2019 2:03 PM FINAL RESULT Escherichia coli (Isolate 1) Sensitivity Analysis Isolate 1 --------- AMIKACIN <=16 S AMOXICILLIN/CLAVULANATE <=8/4 S AMPICILLIN <=8 S AMPICILLIN/SULBACTAM <=8/4 S CEFAZOLIN <=2 S CEFEPIME <=8 S CEFOTAXIME <=2 S CEFTRIAXONE <=1 S CEFUROXIME <=4 S CIPROFLOXACIN <=1 S ERTAPENEM <=0.5 S GENTAMYCIN <=2 S IMIPENEM <=1 S LEVOFLOXACIN <=2 S NITROFURANTOIN <=32 S PIPERACILLIN/TAZOBACTAM <=16 S TETRACYCLINE <=4 S TOBRAMYCIN <=4 S TRIMETHOPRIM/SULFAMETHOXAZ <=2/38 S S=Sensitive;I=Indeterminate;R=Resistant 12 Per NCEP ATP III Guidelines: Results lower than 40 mg/dL are suggestive of increased risk for coronary artery disease. Results > or = to 60 mg/dL are considered a negative risk factor. 13 Per NCEP ATP III Guidelines: Normal Population <130 Patients with medical conditions: CHD/DM Optimal: <100 Borderline high: 130-159 High: 160-189 Very high: >189 14 Updated reference range on new analyzer 15 Updated reference range on new analyzer 16 Updated reference range 08-09-2018 17 Updated Reference Range 18 Concerning GFR Guidelines for Americans: Normal function or mild renal disease, if clinically at risk: >/= 60 mL/min Moderately decreased: 30-59 Severely decreased: 15-29 Renal failure: <15 There is reduced accuracy above 60ml/min/1.73 m squared, but the numeric value may be clinically useful in the near 60 range 19 Concerning GFR Guidelines: Normal function or mild renal disease, if clinically at risk: >/= 60 mL/min Moderately decreased: 30-59 Severely decreased: 15-29 Renal failure: <15 There is reduced accuracy above 60ml/min/1.73 m squared, but the numeric value may be clinically useful in the near 60 range Glomerular Filtration Rate (GFR) is estimated based on the CKD-EPI equation, which assumes a steady state for creatinine as recommended by the National Kidney Disease Education Program in conjunction with the National Institutes of Health and the National Kidney Foundation. Clinical conditions in which it may be necessary to measure GFR by using clearance methods include extremes of age and body size, severe malnutrition or obesity, diseases of skeletal muscle, paraplegia or quadriplegia, vegetarian diet, rapidly changing kidney function, and calculation of the dose of potentially toxic drugs that are excreted by the kidneys. Procedures Date Code Description Status 03/27/2019 31069854 Mammogram Completed 01/08/2019 15150 Inject/Drain Joint/Bursa Major W/Out Ultrasound Completed Guidance 12/15/2018 96905 Destruction Benign Lesions Other Than Skin Tags Up To Completed 14 Lesions 03/14/2018 08338109 Mammogram Completed 04/20/2017 [id number] Bone Mineral Density Test Completed 03/09/2017 [id number] Mammogram Completed 02/25/2016 61647676 Mammogram Completed 02/03/2015 42704430 Mammogram Completed 01/11/2014 43856708 Mammogram Completed 07/04/2013 60617109 Mammogram Completed 01/04/2013 49022975 Mammogram Completed 01/12/2012 440383890 Bone Mineral Density Test Completed 12/30/2011 67592187 Mammogram Completed Medical Devices Description No Information Available Encounters Type Date Location Provider Dx Diagnosis Office Visit 03/09/2019 9:00a Yuri Fallon MD E66.9 Obesity, unspecified I10 Essential (primary) hypertension B07.0 Plantar wart Z12.31 Encntr screen mammogram for malignant neoplasm of breast Z68.39 Body mass index (BMI) 39.0-39.9, adult Office Visit 01/19/2019 10:30a Yuri Fallon MD E66.9 Obesity, unspecified Z68.39 Body mass index (BMI) 39.0-39.9, adult I10 Essential (primary) hypertension Z13.6 Encounter for screening for cardiovascular disorders E78.5 Hyperlipidemia, unspecified R73.01 Impaired fasting glucose R82.998 Other abnormal findings in urine M12.80 Oth specific arthropathies, NEC, unsp site E55.9 Vitamin D deficiency, unspecified Z00.00 Encntr for general adult medical exam w/o abnormal findings Office Visit 01/01/2019 3:15p Kristy Fallon NP E66.9 Obesity, unspecified J00 Acute nasopharyngitis [common cold] Z13.31 Encounter for screening for depression Z68.39 Body mass index (BMI) 39.0-39.9, adult Office Visit 12/21/2018 3:30p Kristy Fallon NP E66.9 Obesity, unspecified M25.561 Pain in RIGHT knee Z68.39 Body mass index (BMI) 39.0-39.9, adult Assessments Date Code Description Provider 05/07/2019 E66.9 Obesity, unspecified Yuri Tolentino MD 05/07/2019 S33.5xxA Sprain of ligaments of lumbar spine, initial Yuri Tolentino MD encounter 05/07/2019 M19.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, unspecified hand Yuri Tolentino MD 05/07/2019 I10 Essential (primary) hypertension Yuri Tolentino MD 05/07/2019 M12.80 Other specific arthropathies, not elsewhere Yuri Tolentino MD classified, unspecified site 05/07/2019 Z68.38 Body mass index (BMI) 38.0-38.9, adult Yuri Tolentino MD 03/09/2019 E66.9 Obesity, unspecified Yuri Tolentino MD 03/09/2019 I10 Essential (primary) hypertension Yuri Tolentino MD 03/09/2019 B07.0 Plantar wart Yuri Tolentino MD 03/09/2019 Z12.31 Encounter for screening mammogram for Yuri Tolentino MD malignant neoplasm of breast 03/09/2019 Z68.39 Body mass index (BMI) 39.0-39.9, adult Yuri Tolentino MD 03/02/2019 E66.9 Obesity, unspecified Yuri Tolentino MD 03/02/2019 Z68.39 Body mass index (BMI) 39.0-39.9, adult Yuri Tolentino MD 02/23/2019 E66.9 Obesity, unspecified Kristy Tolentino NP 02/23/2019 Z68.37 Body mass index (BMI) 37.0-37.9, adult Kristy Tolentino NP 02/15/2019 R82.998 Other abnormal findings in urine Yuri Tolentino MD 02/15/2019 R82.998 Other abnormal findings in urine Nurse Schedule Loc 8 02/15/2019 E55.9 Vitamin D deficiency, unspecified Yuri Tolentino MD 02/15/2019 E55.9 Vitamin D deficiency, unspecified Nurse Schedule Loc 8 02/15/2019 R82.998 Other abnormal findings in urine [facility] 02/15/2019 E55.9 Vitamin D deficiency, unspecified [facility] 01/19/2019 E66.9 Obesity, unspecified Yuri Tolentino MD 01/19/2019 Z68.39 Body mass index (BMI) 39.0-39.9, adult Yuri Tolentino MD 01/19/2019 I10 Essential (primary) hypertension Yuri Tolentino MD 01/19/2019 Z13.6 Encounter for screening for cardiovascular Yuri Tolentino MD disorders 01/19/2019 E78.5 Hyperlipidemia, unspecified Yuri Tolentino MD 01/19/2019 R73.01 Impaired fasting glucose Yuri Tolentino MD 01/19/2019 R82.998 Other abnormal findings in urine Yuri Tolentino MD 01/19/2019 M12.80 Other specific arthropathies, not elsewhere Yuri Tolentino MD classified, unspecified site 01/19/2019 E55.9 Vitamin D deficiency, unspecified Yuri Tolentino MD 01/19/2019 Z00.00 Encounter for general adult medical Yuri Tolentino MD examination without abnormal findings 01/19/2019 I10 Essential (primary) hypertension [facility] [place] [facility] 01/19/2019 Z13.6 Encounter for screening for cardiovascular [facility] disorders 01/19/2019 E78.5 [facility]lipidemia, [facility] 01/19/2019 R73.01 Impaired fasting glucose [facility] 01/19/2019 R82.998 Other abnormal findings in urine [facility] 01/08/2019 M17.11 Unilateral primary osteoarthritis, RIGHT Kristy Tolentino , FIELD TECHNICAL SPECIALIST knee 01/01/2019 E66.9 Obesity, unspecified Kristy Tolentino, CESAR 01/01/2019 J00 Acute nasopharyngitis [common cold] Kristy Tolentino, FIELD TECHNICAL SPECIALIST 01/01/2019 Z13.31 Encounter for screening for depression Kristy Tolentino, CESAR 01/01/2019 Z68.39 Body mass index (BMI) 39.0-39.9, adult Kristy Tolentino, CESAR 12/21/2018 E66.9 Obesity, unspecified Kristy Tolentino, FIELD TECHNICAL SPECIALIST 12/21/2018 M25.561 Pain in RIGHT knee Kristy Tolentino, CESAR 12/21/2018 Z68.39 Body mass index (BMI) 39.0-39.9, adult Kristy Tolentino, CESAR 12/15/2018 E66.9 Obesity, unspecified Yuri Tolentino MD 12/15/2018 B07.0 Plantar wart Yuri Tolentino MD 12/15/2018 Z68.39 Body mass index (BMI) 39.0-39.9, adult Yuri Tolentino MD Plan of Treatment Future Appointment(s):05/29/2019 11:30 am - Yuri Tolentino MD at [place]2019 9:00 am - Yuri Tolentino MD at [place]06/26/2019 2:00 pm - Fox Diaz M.D. at [facility] MD05/07/2019 - Yuri Tolentino MDE66.9 Obesity, unspecifiedComments:RECOMMEND CONTINUED DIET AND EXERCISE. OFFERED CONSULT WITH OUR [place] MACHINE OPERATOR.S33.5xxA Sprain of ligaments of lumbar spine, initial encounterFollow up:Followup:.M19.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, unspecified handI10 Essential (primary) hypertensionComments:HYPERTENSION CONTROLLED WITH MEDICATION CONTINUE PRESENT DOSE AND CONTINUE TO MONITOR OUTSIDE OF THEOFFICE.Follow up:Followup:.M12.80 Other specific arthropathies, not elsewhere classified, unspecified siteFollow up:REPEAT NONFASTING CPK IN 2 WEEKS ALSO FOR KNEE INJECTION WITH LE AT SAME VISIT.Z68.38 Body mass index (BMI ) 38.0-38.9, adult Functional Status Description No Information Available Mental Status Description No Information Available Referrals Refer to Reason for Referral Status Appt Date Fox Diaz M.D. urinary incontinence. Scheduled 06/26/2019 [address] [place] [address] [phone] dx: arthropathy left hand faxed referral and Closed info, waiting to hear back with appt info. 01/19/[address] [place], [place] [address] [address] [phone]
--- OUTSIDE RECORDS SUMMARY | 2019-05-24 14:43 | XMS REPORT | Summary of Care ---
:1950 Author Organization [facility] Address [address] [place] [address] Care Team Providers Name Role Phone Yuri Tolentino MD Primary Care Provider Reason for Visit Reason Comments New Patient Consultation (Routine) Status Reason Specialty Diagnoses / Referred By Referred To Contact Procedures Contact Authorized Rheumatology Diagnoses arthropathy left hand Yuri Tolentino Rheumatology Procedures consult MD [facility] [address] [address] [place] [address] Phone: Encounter Details Date Type Department Care Team Description 04/26/2019 Office Visit Sean Ghosh MD Polyarthralgia Rheumatology [address] [facility] (Primary Dx) [address] [place] [address] Floor [id number] [place] [id number] [phone] Allergies Active Allergy Reactions Severity Noted Date Comments Sulfamethoxazole-Trimethoprim Rash Low 01/19/2019 Neomycin-Bacitracin Zn-Polymyx Rash Low 01/19/2019 Sulfa Antibiotics Rash Low 01/19/2019 documented as of this encounter (statuses as of 04/26/2019) Medications Medication Sig Dispensed Refills Start Date End Date Status guaifenesin-codeine Take 10 mLs by 0 Active (TUSSI-ORGANIDIN NR) mouth Four times 100-10 MG/5ML syrup daily as needed for Cough ibuprofen (ADVIL,MOTRIN) Take 600 mg by 0 Active 600 MG tablet mouth every 8 (eight) hours as needed for Pain Ergocalciferol 2000 Take 1 capsule 0 Active units CAPS by mouth daily atorvastatin (LIPITOR) Take 40 mg by 0 Active 40 MG tablet mouth daily FLUoxetine (PROZAC) 10 Take 10 mg by 0 Active MG capsule mouth daily lisinopril Take 2.5 mg by 0 Active (PRINIVIL,ZESTRIL) 2.5 mouth daily MG tablet aspirin (ASPIRIN 81) 81 Chew 81 mg by 0 Active MG chewable tablet Mouth daily D3-50 1.25 MG (95712 UT) Take by mouth 0 04/16/2019 Active Oral Capsule once a week Myrbetriq 50 MG Oral Take 1 tablet by 0 03/27/2019 Active Tablet Extended Release mouth daily 24 Hour documented as of this encounter (statuses as of 04/26/2019) Active Problems No known active problemsdocumented as of this encounter (statuses as of 2019) Social History Tobacco Use Types Packs/Day Years Used Date Never Smoker Smokeless Tobacco: Never Used Tobacco Cessation: Counseling Given: No Sex Assigned at Date Recorded Not on file Job Start Date Occupation Industry Not on file Not on file Not on file Travel History Travel Start Travel End No recent travel history available. documented as of this encounter Last Filed Vital Signs Vital Sign Reading Time Taken Comments Blood Pressure 142/73 04/26/2019 2:15 PM EST Pulse 96 04/26/2019 2:15 PM EST Temperature 36.7 04/26/2019 2:15 PM EST C (98.1 F) Respiratory Rate 15 04/26/2019 2:15 PM EST Oxygen Saturation 96% 04/26/2019 2:15 PM EST Inhaled Oxygen Concentration - - Weight 107.5 kg (237 lb) 04/26/2019 2:15 PM EST Height 165.1 cm (5' 5") 04/26/2019 2:15 PM EST Body Mass Index 39.44 04/26/2019 2:15 PM EST documented in this encounter Progress Notes Sean Silva MD - 04/26/2019 2:30 PM EST Subjective: Patient ID: Cori Horan is a 69 y.o. female. HPI Patient's medications, allergies, past medical, surgical, social and family histories were reviewed and updated as appropriate. This is initial rheumatology consult requested by primary care doctor for diagnosis and management of arthritis. Dictation on: 04/26/2019 3:08 PM by: SEAN SILVA [[id number]] Review of Systems Per HPI. Review of complete ROS is negative. Denies skin rash, oral ulcer, chest pain, SOB, abdominal pain, diarrhea, constipation, dysuria, hematuria, headache. Denies photosensitivity, dry mouth, dry eyes and Raynaud's. Past Medical History: Diagnosis Date Cellulitis Hematuria Hyperlipidemia Hypertension Past Surgical History: Procedure Laterality Date DILATION AND CURETTAGE OF UTERUS 2008 Family History Problem Relation Age of Onset Vaginal cancer Mother Hypertension Mother Diabetes Mother Stroke Mother Kidney disease Mother Dementia Mother Arthritis Mother Social History Tobacco Use Smoking status: Never Smoker Smokeless tobacco: Never Used Substance Use Topics Alcohol use: Not on file Comment: Rarely Drug use: Never Bactrim [sulfamethoxazole-trimethoprim]; Neosporin [neomycin-bacitracin zn- polymyx]; and Sulfa antibiotics Current Outpatient Medications Medication Sig Dispense Refill aspirin (ASPIRIN 81) 81 MG chewable tablet Chew 81 mg by Mouth daily atorvastatin (LIPITOR) 40 MG tablet Take 40 mg by mouth daily D3-50 1.25 MG (71235 UT) Oral Capsule Take by mouth once a week Ergocalciferol 2000 units CAPS Take 1 capsule by mouth daily FLUoxetine (PROZAC) 10 MG capsule Take 10 mg by mouth daily guaifenesin-codeine (TUSSI-ORGANIDIN NR) 100-10 MG/5ML syrup Take 10 mLs by mouth Four times daily as needed for Cough ibuprofen (ADVIL,MOTRIN) 600 MG tablet Take 600 mg by mouth every 8 ( eight) hours as needed for Pain lisinopril (PRINIVIL,ZESTRIL) 2.5 MG tablet Take 2.5 mg by mouth daily Myrbetriq 50 MG Oral Tablet Extended Release 24 Hour Take 1 tablet by mouth daily No current facility-administered medications for this visit. Objective: Physical Exam Visit Vitals BP 142/73 Pulse 96 Temp 36.7 C (98.1 F) (Tympanic) Resp 15 Ht 1.651 m (5' 5") Wt 107.5 kg (237 lb) SpO2 96% BMI 39.44 kg/m HEENT: no facial erythema, hearing grossly intact. Chest exam: clear to auscultation, no wheezing orcrackles. Good airway entry. Heart exam: regular rate and rhythm, S1, S2 present, no murmur, rub, gallop. Extremities no cyanosis , clubbing or edema. Neuro exam: AAO*3, no focal deficits. Skin exam: Nopsoriasis or vasculitis skin rash. Joint exam: No active synovitis in both upper and lower extremityjoints except both hands DIP, PIP joints, CMC joints enlarged. Could not make full fists. both kneescrepitus. Lower hose tubing backer and mild limited ROM. Normal gait and stance. Data reviewed: I personally reviewed old chart, labs in [employer], note and other clinical date from her PCP office. Labs done 01/19/2019 CBC, CMP normal. Assessment: 1. 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 2. Knee OA. 3. Lower back pain. 4. HTN. Plan: - Cori was seen today for new patient. Diagnoses and all orders for this visit: Polyarthralgia - Rheumatoid factor; Future - CCP antiBody; Future - Sedimentation rate, automated; Future - Uric acid; Future - CK; Future - XR Hand 3 or More Views Bilateral; Future - XR Knee 1-2 Views Bilateral; Future - XR Spine Lumbar 2-3 Views; Future - XR Hand 3 or More Views Bilateral - XR Knee 1-2 Views Bilateral - XR Spine Lumbar 2-3 Views - CK - Uric acid - Sedimentation rate, automated - CCP antiBody - Rheumatoid factor - knees, hands lumbar spine x-rays. - agree with ibuprofen 600mg prn. - Will discuss further management on next visit. - Activities as tolerated. - Diet: Paleo diet ( no sugar, no diary, low carb diet) , more greens/vegetables , adequate hydration. - Encouraged to maintain good sleep hygiene. - Continue other medications as prescribed by PCP and other specialist. - RV based on results; above findings, analysis and plan were all discussed with the patient and questions were answered as much as possible. Thanks for the consult. documented in this encounter Plan of Treatment Name Type Priority Associated Diagnoses Order Schedule Rheumatoid factor Lab Routine Polyarthralgia 1 Occurrences starting 04/26/2019 until 10/27/2019 CCP antiBody Lab Routine Polyarthralgia 1 Occurrences starting 04/26/2019 until 10/25/2019 Sedimentation rate, Lab Routine Polyarthralgia 1 Occurrences starting automated 04/26/2019 until 10/27/2019 Uric acid Lab Routine Polyarthralgia 1 Occurrences starting 04/26/2019 until 10/27/2019 CK Lab Routine Polyarthralgia 1 Occurrences starting 04/26/2019 until 10/26/2019 XR Hand 3 or More Views Imaging Routine Polyarthralgia Expected: 04/26/2019 , Bilateral Expires: 04/26/2021 XR Knee 1-2 Views Imaging Routine Polyarthralgia Expected: 04/26/2019, Bilateral Expires: 04/26/2021 XR Spine Lumbar 2-3 Views Imaging Routine Polyarthralgia Expected: 2019, Expires: 04/26/2021 documented as of this encounter Results Not on filedocumented in this encounter Visit Diagnoses Diagnosis Polyarthralgia - Primary Pain in joint, multiple sites documented in this encounter
--- NOTE | 2019-05-24 14:52 | UC ---
Complaint Female HPI - HPI Summary HPI Summary: 69-year-old female who was in a meeting today when she had some sudden urinary pressure and then burning on urination and frequency. She denies any fever or chills and no back pain. Last urinary tract infection was in the fall. - History Of Current Complaint Stated Complaint: URINARY COMPLAINT Time Seen by Provider: 05/24/19 14:51 Hx Obtained From: Patient ?: No Onset/Duration: Gradual Onset, Lasting Hours Timing: Intermittent Severity Initially: Mild Severity Currently: Mild Character: Burning Aggravating Factor(s): Urination Associated Signs And Symptoms: Positive: Negative - Allergies/Home Medications Allergies/Adverse Reactions: Allergies Allergy/AdvReac Type Severity Reaction Status Date / Time bacitracin Allergy Rash Verified 05/24/19 14:55 neomycin Allergy Rash Verified 05/24/19 14:55 [From Neosporin ([id number])] polymyxin B Allergy Rash Verified 05/24/19 14:55 [From Neosporin ([id number])] sulfamethoxazole Allergy Rash Verified 05/24/19 14:55 [From Bactrim] trimethoprim [From Bactrim] Allergy Rash Verified 05/24/19 14:55 PMH/Surg Hx/FS Hx/Imm Hx Previously Healthy: Yes Endocrine History: Dyslipidemia Cardiovascular History: Hypertension - Surgical History Surgical History: Yes Surgery Procedure, Year, and Place: D&C - Family History Known Family History: Positive: Hypertension, Diabetes - Social History Alcohol Use: Rare Substance Use Type: None Smoking Status (MU): Never Smoked Tobacco Have You Smoked in the Last Year: No Review of Systems All Other Systems Reviewed And Are Negative: Yes Genitourinary: Positive: Dysuria, Frequency, Urgency Is Patient Immunocompromised?: No Physical Exam Triage Information Reviewed: Yes Appearance: Well-Appearing, No Pain Distress, Well-Nourished Vital Signs Reviewed: Yes Eyes: Positive: Conjunctiva Clear Respiratory: Positive: Lungs clear, Normal breath sounds, No respiratory distress, No accessory muscle use Cardiovascular: Positive: RRR, No Murmur, Pulses Normal, Brisk Capillary Refill Abdomen Description: Positive: Nontender, No Organomegaly, Soft. Negative: CVA Tenderness (R), CVA Tenderness (L), Distended, Guarding, Hepatomegaly, McBurney' s Point Tenderness, Splenomegaly Bowel Sounds: Positive: Present Musculoskeletal Exam: Normal Neurological Exam: Normal Psychological Exam: Normal Skin Exam: Normal Complaint Female Dx - Course Course Of Treatment: Urinalysis: 2+ leukocytes, 3+ blood Patient is comfortable here. I'm going to start her on cephalexin and a follow- up with her urologist if no improvement in 4 or 5 days. - Differential Dx/Diagnosis Provider Diagnosis: UTI (urinary tract infection) Discharge ED - Sign-Out/Discharge Documenting (check all that apply): Patient Departure All imaging exams completed and their final reports reviewed: No Studies - Discharge Plan Condition: Good Disposition: HOME Prescriptions: Cephalexin CAP* [Keflex 250 CAP*] 250 mg PO TID 10 Days #30 cap Patient Education Materials: Urinary Tract Infection in Older Adults (ED) Referrals: Yuri Tolentino MD [Primary Care Provider] - Additional Instructions: Increase fluids, follow-up with your primary care provider or urologist if no improvement in approximately 5-7 days. Go to the emergency room if you develop fever, chills, back pain or vomiting and unable keep medicine down. - Billing Disposition and Condition Condition: GOOD Disposition: Home
[2019-05-24 15:00] VITALS: BP 144/64
== END 2019-05-24 15:22 | disposition home or self-care (01) ==
LOC: UCCORT 14:36
DX: N39.0 Urinary tract infection, site not specified (principal); I10 Essential (primary) hypertension; Z88.1 Allergy status to other antibiotic agents; Z88.2 Allergy status to sulfonamides
CPT/HCPCS: 81003; 87077; 87086; 87186; 99212; G0463

== ENCOUNTER 2019-06-18 11:31 | Emergency (ER) | payer MEDICARE, OTHER ==
--- OUTSIDE RECORDS SUMMARY | 2019-06-18 11:43 | XMS REPORT | Continuity of Care Document ---
:1950 External Reference #:[id number] Author Name Yrui Tolentino MD Address [address] [place] [id number] Care Team Providers Name Role Phone Hank Jeffers - Gastroenterology Care Team Information Consumer Banker [phone] Fox Diaz M.D. - Obstetrics & Care Team Information Consumer Banker Gynecology Problems Active Problems Provider Date Mixed [...] Potency mouth every week CESAR Wagner 1.25mg (28166 Ut) Tablets Guaifenesin-Codeine 10ml every 4 hours [...] Tolentino, 01/01/2019 - 100mg times a day LCAC RADAR OPERATOR/NAVIGATOR 01/19/2019 Capsules Medications Administered in Office Medication SIG Qnty Indications Ordering Provider Date Inj Triamcinolone (Kenalog) Im Yuri Tolentino MD 05/29/2019 10 MG, Injection Inj Triamcinolone (Kenalog) Im Kristy Tolentino NP 01/08/2019 10 MG, Injection Immunizations CPT Code Status Date Vaccine Lot # [id number] Given 02/02/2019 Influenza Vac, Quadrivalent, Split, 0.5mL Dosage, Im Use 03913 Given 01/29/2019 Shingrix (Shingles) Zoster Vaccine HZV, Recombinant, Subunit, Adj 13945 Given 03/28/2018 Pneumococcal 23 Immunization Adult Or [id number] Immunosuppressed Patient 77759 Given 02/25/2018 Influenza Vac, Quadrivalent, Split, 0.5mL Dosage, Im Use 20202 Given 08/25/2017 Tdap (Adacel) Ages 7 And Above Only [id number] 44209 Given 01/13/2016 Prevnar 13 Pneumococal Conjugate Vaccine [id number] U-Pneum Given 02/20/2015 Pneumococcal (Non Billable) Unspecified 26512 Given 03/04/2014 Zoster (Zostavax) [id number] 57131 Given 06/03/2010 Pneumococcal 23 Immunization Adult Or [id number] Immunosuppressed Patient 02711 Given 02/09/2010 Afluria Or Fluvirin Flu Vac Intramuscular [id number] 51232 Given 09/22/2005 Tdap (Adacel) Ages 7 And Above Only [id number] 66131 Refused 01/01/2019 Afluria Or Fluvirin Flu Vac Intramuscular 02295 Refused 02/03/2018 Fluzone Highdose Age 65 And Over Preservative & Antibiotic Free 09499 Refused 12/01/2016 Afluria Or Fluvirin Flu Vac Intramuscular Vital Signs Date Vital Result Comment 05/29/2019 11:29am Body Temperature 97.9 F Weight 234.00 lb Heart Rate 78 /min BP Systolic 128 mmHg BP Diastolic 78 mmHg Respiratory Rate 16 /min Height 65 inches 5'5" O2 % BldC Oximetry 98 % BMI (Body Mass Index) 38.9 kg/m2 05/07/2019 4:18pm Body Temperature 98.2 F Weight 234.00 lb Heart Rate 83 /min BP Systolic 140 mmHg BP Diastolic 80 mmHg Respiratory Rate 14 /min Height 65 inches 5'5" O2 % BldC Oximetry 95 % BMI (Body Mass Index) 38.9 kg/m2 Results Test Acquired Date Facility Test Result H/L Range Note Laboratory test 05/29/2019 [facility] <pending> finding Poc Urinalysis 05/24/2019 [facility] Poc NEGATIVE Negative Glucose, Urine Poc Bilirubin, Urine NEGATIVE Negative Poc Ketone, Urine NEGATIVE Negative Poc Specific [place], Urine >= 1.030 Normal 1.010-1.030 Poc Blood, Urine 3+ Abnormal Negative 1 Poc pH, Urine 5.5 Normal 5-9 Poc Protein, Urine 1+ Abnormal Negative Poc Urobilinogen, Urine 0.2 Negative Poc Nitrite, Urine POSITIVE Negative Poc Leukocytes, Urine 2+ Abnormal Negative Poc Color, Urine DARK YELLOW Poc Clarity, Urine SLIGHTLY CLOUDY Urine Culture And 02/18/2019 [facility] Urine Culture SEE RESULT 2, 3 Sensitivities BELOW Poc Urinalysis 02/18/2019 [facility] Poc Glucose, Negative Negative Urine Poc Bilirubin, Urine Negative Negative Poc Ketone, Urine Negative Negative Poc Specific [place], Urine 1.020 Normal 1.010-1.030 Poc Blood, Urine 2+ Abnormal Negative Poc pH, Urine 7.0 Normal 5-9 Poc Protein, Urine Negative Negative Poc Urobilinogen, Urine 1.0 Negative Poc Nitrite, Urine Negative Negative Poc Leukocytes, Urine 3+ Abnormal Negative Poc Color, Urine Yellow Poc Clarity, Urine Clear 4 Rout Urine W/ Micro -RL 02/15/2019 [facility] Color YELLOW Appearance CLEAR Spec Grav Urine [...] [HPF] (0-8) Urine RBC 0.5 [HPF] (0-3) 5 Laboratory test 02/15/2019 [facility]ology Fluid SEE NOTE 6 finding Specimen Laboratory test 02/15/2019 [facility] Urine Culture Microbiology res Abnormal 7 finding <SEE NOTE> Vitamin D 25 Hydroxy 25 ng/mL Low 30-100 8 Poc Urinalysis 01/28/2019 [facility] Poc Glucose, Urine Negative Negative Poc Bilirubin, Urine 1+ Abnormal Negative Poc Ketone, Urine Negative Negative Poc Specific [place], Urine 1.025 Normal 1.010-1.030 Poc Blood, Urine 3+ Abnormal Negative Poc pH, Urine 5.0 Normal 5-9 Poc Protein, Urine 2+ Abnormal Negative Poc Urobilinogen, Urine 0.2 Negative Poc Nitrite, Urine Positive Abnormal Negative Poc Leukocytes, Urine 1+ Abnormal Negative Poc Color, Urine [place] Poc Clarity, Urine Cloudy 9 Urine Culture And 01/28/2019 [facility] Urine Culture SEE RESULT 10, 11 Sensitivities BELOW Laboratory test 01/19/2019 [facility] Urine Culture Microbiology Abnormal 12 finding res <SEE NOTE> Hemoglobin A1c 01/19/2019 [facility] Hemoglobin 6.6 % High 4.1 A1c -5. 9 Estimated Average Glucose Calc 143 mg/dL High 71-140 Lipid 01/19/2019 [facility] Cholesterol 150 mg/dL 50-199 Triglycerides 64 mg/dL 30-200 HDL 46 mg/dL 35-85 13 Chol/ HDL Ratio 3.3 ratio Low 3.7-5.6 VLDL 13 mg/dL 2-29 LDL (Calc) 91 mg/dL 20-99 14 CBC with Auto Diff-fcmg 01/19/2019 [facility] WBC [...] 01/19/2019 [facility] Sodium 139 mmol/L 135- 146 15 Potassium 4.0 mmol/L 3.5-5.2 Chloride# 106 mmol/L 97-110 16 Carbon Dioxide 25 mmol/L 24-34 Calcium 8.8 mg/dL 8.5-10.5 17 Glucose 121 mg/dL High 70-105 BUN 26 mg/dL 6-26 Creatinine 0.8 mg/dL 0.5-1.4 Total Protein 6.5 g/dL 6.0-8.0 Albumin 4.1 g/dL 3.6-4.9 Globulin 2.4 g/dL 2.0-3.5 A/G Ratio 1.7 Ratio 1.0-2.2 Total Bilirubin 0.6 mg/dL 0.1-1.3 Alkaline Phosphatase 81 U/L 24-140 Alt 17 U/L 3-42 Ast 15 U/L 8-42 Anion Gap 8 mmol/L 5-15 18 Female Egfr 81 >60 19 Male Egfr 94 >60 20 1 Oceanology Teacher: [id number] SEE RESULT BELOW Name: CORI HORAN : [address]: Yuri Knight MD Acct: [id number] Unit: [id number] AGE: 69 Location: [facility] Re02/18/19 SEX: F Status: DEP ER SPEC: [id number] [place]: 02/18/19-1437 [facility] DR: Yuri Knight MD REQ: [id number] RECD: 02/19/19-1100 STATUS:EDWARDO CHURCH DR: [facility] Yuri Sparrow MD _ SOURCE: URINE SPDESC: ORDERED: Urine Culture COMMENTS: [id number] QUERIES: Urine Source: Random Procedure Result Reported Site Urine Culture Final 02/21/19832 ML Organism 1 ESCHERICHIA COLI [place] Count 75-100,000 (Many) CFU/ML 1. ESCHERICHIA COLI M.I.C. RX --------- ------ Ampicillin 4 S Cefazolin <=4 S Cefepime <=1 S Ceftriaxone <=1 S Ciprofloxacin <=0.25 S Gentamicin <=1 S Levofloxacin <=0.12 S Meropenem <=0.25 S Nitrofurantoin 32 S Tetracycline <=1 S Pipercillin/Tazobactam <=4 S Trimethoprim/Sulfamethoxazole <=20 S Amoxicillin/Clavulanic Acid <=2 S Aztreonam <=1 S CONTINUED ON NEXT PAGE DEPARTMENT OF PATHOLOGY, [address] [place] [address] Harlan Spence M.D. Director [facility] # [id number] Specimen: [id number] Collected: 02/18/19 Received: 02/19/19 (Continued) Procedure Result Reported Site Urine Culture Final (continued) Contact the Microbiology Department for any additional antibiotic reporting. * ML - Main Lab . END OF REPORT DEPARTMENT OF PATHOLOGY, [address] [place] [address] Harlan Spence M.D. Director [facility] # [id number] 4 Oceanology Teacher: [id number] Unless otherwise specified, testing performed by [facility] [facility] [place] [address] 6 [employer] [facility] [employer] [facility]. [facility] [place] [address] MISCELLANEOUS CYTOLOGY REPORT Source of Specimen(s): A: [...] Out By Paradise Smith MD [facility] Case Manager: Tamy DONNELYL([facility]) [facility] ICD Code: R82.998 CPT Code: A: 56999A Unless otherwise specified, testing performed by [facility] [place], [address] [address] 7 Microbiology results SOURCE Clean Catch Midstream COLONY [...] TOBRAMYCIN <=4 S TRIMETHOPRIM/SULFAMETHOXAZ <=2/38 S S=Sensitive;I=Indeterminate;R=Resistant 8 Clinical Guidelines for recommended serum 25(OH)Vitamin D Deficient at less than 20 ng/mL Insufficient at 20 to <30 ng/mL Sufficient at 30-100 ng/mL Toxicity at greater than 100 ng/mL 9 Oceanology Teacher: [id number] 11 SEE RESULT BELOW Name: CORI HORAN : [address]: Cronel Christianson MD Acct: [id number] Unit: [id number] AGE: 69 Location: [facility] Re01/28/19 SEX: F Status: DEP ER SPEC: [id number] [place]: 01/28/19-1050 [facility] DR: Cheri Rodriguez NP REQ: [id number] RECD: 01/28/19 STATUS: COMP OTHR DR: Yuri Christianson MD _ SOURCE: URINE [facility]: ORDERED: Urine Culture COMMENTS: [id number] QUERIES: Urine Source: Random Procedure Result Reported Site Urine Culture Final 01/30/19- 825 ML Organism 1 ESCHERICHIA COLI [place] Count >100,000 (Many) CFU/ML 1. ESCHERICHIA COLI [...] . END OF REPORT DEPARTMENT OF PATHOLOGY, [address] [place] [address] Harlan Spence M.D. Director [facility] # [id number] 12 Microbiology results SOURCE Clean Catch Midstream COLONY [...] TOBRAMYCIN <=4 S TRIMETHOPRIM/SULFAMETHOXAZ <=2/38 S S=Sensitive;I=Indeterminate;R=Resistant 13 Per NCEP ATP III Guidelines: Results lower than 40 mg/dL are suggestive of increased risk for coronary artery disease. Results > or = to 60 mg/dL are considered a negative risk factor. 14 Per NCEP ATP III Guidelines: Normal Population <130 Patients with medical conditions: CHD/DM Optimal: <100 Borderline high: 130-159 High: 160-189 Very high: >189 15 Updated reference range on new analyzer 16 Updated reference range on new analyzer 17 Updated reference range 08-09-2018 18 Updated Reference Range 19 Concerning GFR Guidelines for Americans: Normal function or mild renal disease, if clinically at risk: >/= 60 mL/min Moderately decreased: 30-59 Severely decreased: 15-29 Renal failure: <15 There is reduced accuracy above 60ml/min/1.73 m squared, but the numeric value may be clinically useful in the near 60 range 20 Concerning GFR Guidelines: Normal function or mild [...] the kidneys. Procedures Date Code Description Status 05/29/201953785 Inject/Drain Joint/Bursa Major W/Out Ultrasound Completed Guidance 03/27/2019 [id number] Mammogram Completed 01/08/2019 76454 Inject/Drain Joint/Bursa Major W/Out Ultrasound Completed Guidance 12/15/2018 39497 Destruction Benign Lesions Other Than Skin Tags Up To Completed 14 Lesions 03/14/2018 [id number] Mammogram Completed 04/20/2017 [id number] Bone Mineral Density Test Completed 03/09/2017 [id number] Mammogram Completed 02/25/2016 07269080 Mammogram Completed 02/03/2015 [id number] Mammogram Completed 01/11/2014 20370410 Mammogram Completed 07/04/2013 93502914 Mammogram Completed 01/04/2013 72743475 Mammogram Completed 01/12/2012 452262419 Bone Mineral Density Test Completed 12/30/2011 [id number] Mammogram Completed Medical Devices Description No Information Available Encounters Type Date Location Provider Dx Diagnosis Office Visit 05/07/2019 4:15p Yuri Fallon MD E66.9 Obesity, unspecified S33.5xxA Sprain of ligaments of lumbar spine, initial encounter M19.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, unspecified hand I10 Essential (primary) hypertension M12.80 Oth specific arthropathies, NEC, unsp site Z68.38 Body mass index (BMI) 38.0-38.9, adult Office Visit 03/09/2019 9:00a Yuri Fallon MD [...] findings in urine M12.80 Oth specific arthropathies, [facility] E55.9 Vitamin D deficiency, unspecified Z00.00 [...] 39.0-39.9, adult Assessments Date Code Description Provider 05/29/2019 E66.9 Obesity, unspecified Yuri Tolnetino MD 05/29/2019 Z68.38 Body mass index (BMI) 38.0-38.9, adult Yuri Tolentino MD 05/29/2019 M12.80 Other specific arthropathies, not elsewhere Yuri Tolentino MD classified, unspecified site 05/07/2019 E66.9 Obesity, unspecified Yuri Tolentino MD [...] Tolentino MD 02/23/2019 E66.9 Obesity, unspecified Kristy Tolentino, LCAC RADAR OPERATOR/NAVIGATOR 02/23/2019 Z68.37 Body mass index (BMI) 37.0-37.9, adult Kristy Tolentino, LCAC RADAR OPERATOR/NAVIGATOR 02/15/2019 R82.998 Other abnormal findings in urine Yuri Tolentino MD 02/15/2019 R82.998 Other abnormal findings in urine Nurse Schedule Loc 8 02/15/2019 E55.9 Vitamin D deficiency, unspecified Yuri Tolentino MD 02/15/2019 E55.9 Vitamin D deficiency, unspecified Nurse Schedule Loc 8 02/15/2019 R82.998 Other abnormal findings [facility] 02/15/2019 E55.9 Vitamin D deficiency, unspecified [facility] 01/19/2019 E66.9 Obesity, unspecified Yuri [...] abnormal findings 01/19/2019 I10 Essential (primary) hypertension [facility] 01/19/2019 Z13.6 Encounter for screening for cardiovascular [facility] disorders 01/19/2019 E78.5 Hyperlipidemia, unspecified [facility] 01/19/2019 R73.01 Impaired fasting glucose [facility] 01/19/2019 R82.998 Other abnormal findings in urine [facility] 01/08/2019 M17.11 Unilateral primary osteoarthritis, RIGHT Kristy Tolentino NP knee 01/01/2019 E66.9 Obesity, unspecified Kristy Tolentino, CESAR 01/01/2019 J00 Acute nasopharyngitis [common cold] Kristy Tolentino NP 01/01/2019 Z13.31 Encounter for screening for depression Kristy Tolentino NP 01/01/2019 Z68.39 Body mass index (BMI) 39.0-39.9, adult Kristy Tolentino NP 12/21/2018 E66.9 Obesity, unspecified Kristy Tolentino NP 12/21/2018 M25.561 Pain in RIGHT knee Kristy Tolentino NP 12/21/2018 Z68.39 Body mass index (BMI) 39.0-39.9, adult Kristy Tolentino NP 12/15/2018 E66.9 Obesity, unspecified Yuri Tolentino MD 12/15/2018 B07.0 Plantar wart Yuri Tolentino MD 12/15/2018 Z68.39 Body mass index (BMI) 39.0-39.9, adult Yuri Tolentino MD Plan of Treatment Future Appointment(s):06/11/2019 3:30 pm - Nurse Schedule Loc 8 at [place]2019 9:00 am - Yuri Tolentino MD at [place]06/26/2019 2:00 pm - Fox Diaz M.D. at [facility] MD05/29/2019 - Yuri Tolentino MDE66.9 Obesity, unspecifiedComments:RECOMMEND CONTINUED DIET AND EXERCISE. OFFERED CONSULT WITH OUR MUSICAL THERAPIST.Z68.38 Body mass index (BMI) 38.0-38.9, bkvtsB47.80 Other specific arthropathies, not elsewhere classified, unspecified site Functional Status Description No Information Available Mental Status Description No Information Available Referrals Refer to Dr Reason for Referral Status Appt Date Fox Diaz M.D. urinary incontinence. Scheduled 06/26/2019 [address] [place] [address] [phone] dx: arthropathy left hand faxed referral and Closed info, waiting to hear back with appt info. 01/19/[address] [place] [address] [place] [address] [phone]
[2019-06-18 11:53] VITALS: BP 134/61
--- NOTE | 2019-06-18 12:23 | UC ---
Skin Complaint HPI - HPI Summary HPI Summary: ~2cm flap like skin tear to right hand overlying right proximal fifth metatarsal caused by dog scratch two days ago. Cleanse area with soap and water. Has kept area covered with A&D ointment and Bandaids. Patient is concerned about erythema around wound. - History of Current Complaint Chief Complaint: UCLaceration Time Seen by Provider: 06/18/19 12:19 Stated Complaint: RIGHT HAND DOG SCRATCH Hx Obtained From: Patient ?: No Onset/Duration: Sudden Onset, Lasting Days Skin Exposure Onset/Duration: Days Ago Timing: Constant Onset Severity: Mild Current Severity: Mild Pain Intensity: 0 Character: Redness - Allergy/Home Medications Allergies/Adverse Reactions: Allergies Allergy/AdvReac Type Severity Reaction Status Date / Time bacitracin Allergy Rash Verified 06/18/19 11:47 neomycin Allergy Rash Verified 06/18/19 11:47 [From Neosporin ([id number]-[id number])] polymyxin B Allergy Rash Verified 06/18/19 11:47 [From Neosporin (fzm-[id number]-mrabi)] sulfamethoxazole Allergy Rash Verified 06/18/19 11:47 [From Bactrim] trimethoprim [From Bactrim] Allergy Rash Verified 06/18/19 11:47 Home Medications: Home Medications Aspirin EC TAB* [Ecotrin EC Low Dose 81 MG*] 81 mg PO DAILY 05/30/16 [History Confirmed 06/18/19] FLUoxetine CAP* [Prozac CAP*] 20 mg PO DAILY 05/30/16 [History Confirmed ] Lisinopril TAB* [Prinivil TAB 10 MG*] 10 mg PO DAILY 05/30/16 [History Confirmed 06/18/19] Cholecalciferol TAB* [Vitamin D TAB*] unit PO WEEKLY 06/19/17 [History Confirmed 05/24/19] Atorvastatin* [Lipitor 20 MG*] 20 mg PO DAILY 01/28/19 [History Confirmed ] PMH/Surg Hx/FS Hx/Imm Hx Previously Healthy: Yes - Surgical History Surgical History: Yes Surgery Procedure, Year, and Place: D&C - Family History Known Family History: Positive: Hypertension, Diabetes - Social History Alcohol Use: Rare Substance Use Type: None Smoking Status (MU): Never Smoked Tobacco Have You Smoked in the Last Year: No - Immunization History Most Recent Tetanus Shot: "I know I've had it within the last ten years." Review of Systems All Other Systems Reviewed And Are Negative: Yes Skin: Positive: Bruising, Other - sctarch Is Patient Immunocompromised?: No Physical Exam Triage Information Reviewed: Yes Appearance: Well-Appearing, Well-Nourished, Pain Distress Vital Signs: Initial Vital Signs Temp 99.1 F 06/18/19 11:45 Pulse 86 06/18/19 11:45 Resp 16 06/18/19 11:45 BP 134/61 06/18/19 11:45 Pulse Ox 97 06/18/19 11:45 Eye Exam: Normal ENT Exam: Normal Dental Exam: Normal Neck exam: Normal Respiratory Exam: Normal Cardiovascular Exam: Normal Musculoskeletal Exam: Normal Skin: Positive: Other - traingle shaped skin tear, area of bruising circumfrencial to wound, no erythema noted Course/Dx - Course Course Of Treatment: hx obtained, exam performed, meds reviewed, the area is bruised no sign of infection. - Differential Diagnoses - Skin Complaint Differential Diagnoses: Cellulitis - Diagnoses Provider Diagnosis: Dog scratch, Bruise Discharge ED - Sign-Out/Discharge Documenting (check all that apply): Patient Departure All imaging exams completed and their final reports reviewed: No Studies - Discharge Plan Condition: Stable Disposition: HOME Patient Education Materials: Acute Wound Care (ED) Referrals: Yuri Tolentino MD [Primary Care Provider] - Additional Instructions: soak the hand in warm epsom salts 1-2 times a day for 2-3 days can apply thin layer of a and d ointment and keep clean. follow up if not healing well - Billing Disposition and Condition Condition: STABLE Disposition: Home - Attestation Statements Provider Attestation: This patient was not seen by me. I was available for consult. Chart reviewed. GERTRUDIS
== END 2019-06-18 12:32 | disposition home or self-care (01) ==
LOC: UCCORT 11:31
DX: T14.8XXA Other injury of unspecified body region, initial encounter (principal); W54.8XXA Other contact with dog, initial encounter; Y92.9 Unspecified place or not applicable; Z88.1 Allergy status to other antibiotic agents; Z88.2 Allergy status to sulfonamides; Z79.82 Long term (current) use of aspirin
CPT/HCPCS: 99211; G0463